=== PATIENT | female | born 1970 | race Caucasian/White ===

== ENCOUNTER 2016-04-30 07:46 | Emergency (ER) | payer OTHER ==
--- NOTE | 2016-04-30 09:00 | DIAGNOSTIC IMAGING REPORT ---
PROCEDURE: XR CHEST 2 VIEW INDICATION: CHEST PAIN, initial encounter TECHNIQUE: PA and lateral view. COMPARISON: None. FINDINGS: Lungs are clear. Cardiovascular structures are normal. Mild degenerative changes of the spine. IMPRESSION: 1. Negative chest.
--- NOTE | 2016-04-30 10:24 | ED CLINICAL REPORT ---
Clinical Report - Physicians/Mid Levels [facility] [address] [place] [address] 04/30/2016 7:47 Patient: JASON GALLEGOS Time Seen: 08:00. Arrived- By private vehicle. Historian- patient. HISTORY OF PRESENT ILLNESS Chief Complaint: CHEST DISCOMFORT. It is described as sharp and "pain" and it is described as located in the central chest area. No radiation. This started several months ago and is still present. It was gradual in onset and has been waxing/waning. Onset during light activity. At its maximum, severity described as moderate. When seen in the E.D., severity described as moderate. Modifying factors- worsened by exertion, movement, cough and deep breaths. Relieved by rest. No nausea, vomiting or diaphoresis. (Patient presents to the ED with symptoms of sharp, chest pain x 4 weeks that has gradually worsened. Patient states that she has experienced a cough x 3 months and has been on several courses of antibiotics prescribed by her primary care physician without relief. Patient states that she is coughing up clear mucus.). She has had a cough (for 3 months). Similar symptoms previously: Recent medical care: The patient was seen recently in a clinic. Seen for similar symptoms. Evaluation/treatment: antibiotic prescribed. REVIEW OF SYSTEMS No fever, pedal edema, calf pain, fainting episodes or headache. No sore throat, abdominal pain, black stools, difficulty with urination or skin rash. No joint pain or bloody stools. The patient has had a moderate cough productive of scant amounts of sputum (for 3 months). No blood tinged sputum or frankly bloody sputum. All systems otherwise negative, except as recorded above. PAST HISTORY See nurses notes. PROBLEMS: Diabetes Mellitus Type 2. Hypercholesterolemia. Hypertension. Anxiety Reaction. Bipolar Disorder. Depression. Palpitations SURGERIES: Cysts removal (lower back). Gastric ByPass. L breast surgery (cyst removal). No history of coronary artery disease, congestive heart failure or pulmonary embolism. SOCIAL HISTORY Never smoker. Occasional alcohol use. No drug use. Is a local resident. ADDITIONAL NOTES The nursing notes have been reviewed. PHYSICAL EXAM Vital Signs: 04/30/2016 07:55 BP: 132/95. HR: 72. RR: 14. O2 saturation: 99%. Temp: 98.5 F. Pain level now: 8/10. Appearance: Alert. Oriented X3. No acute distress. Eyes: Pupils equal, round and reactive to light. Eyes normal inspection. No scleral icterus or pale conjunctivae. ENT: Pharynx normal. No pharyngeal erythema or tonsillar exudate. The mucous membranes are not dry. Neck: Normal inspection. Neck supple. CVS: Normal heart rate and rhythm. Heart sounds normal. Pulses normal. Respiratory: No respiratory distress. Chest pain reproducible with palpation of the anterior chest wall and with movement of the trunk. Breath sounds normal. No decreased air movement, rales, rhonchi or wheezes. Abdomen: Soft and nontender. Back: Normal external inspection. Skin: Skin warm and dry. Normal skin color. No rash. Normal skin turgor. Extremities: Extremities exhibit normal ROM. No calf tenderness. No lower extremity edema. Neuro: Oriented X 3. No motor deficit. LABS, X-RAYS, AND EKG EKG: EKG time: (08:03). Normal sinus rhythm. Rate: 700. Normal P waves. Normal SANDRA. Normal QRS complex. Normal axis. Non-specific ST segment / T wave abnormalities. Non-specific T wave flattening in lead aVF. Non-specific T wave inversion in lead III. The study has been interpreted contemporaneously by me. The EKG appears to be a good tracing. Rhythm Strip #1: Normal sinus rhythm. Regular rhythm. Narrow QRS complexes. No ectopy. Chest X-ray: No acute disease. Normal lung markings present. Normal heart size. Mediastinum normal. Great vessels normal. No infiltrate. No fracture. Views: PA and lateral. Technique: good. The X-rays were interpreted contemporaneously by me. Laboratory Tests: UA-Culture if indicated: (RINA: 04/30/2016 08:04) ( MsgRcvd 04/30/2016 08:35) Final results Test Result Flag Units (Reference) URINE COLOR STRAW URINE APPEARANCE CLEAR URINE GLUCOSE NEGATIVE (NEGATIVE) URINE BILIRUBIN NEGATIVE (NEGATIVE) URINE KETONE NEGATIVE (NEGATIVE) URINE SPECIFIC GRAVITY 1.010 (1.010-1.030) URINE PH 5.5 (5.0-8.0) URINE PROTEIN NEGATIVE (NEGATIVE) URINE UROBILINOGEN 0.2 EU/dL (0.2-1.0) URINE NITRITE NEGATIVE (NEGATIVE) URINE BLOOD 3+ (NEGATIVE) URINE LEUK ESTERASE NEGATIVE (NEGATIVE) URINE RBC 0-1 rbc/hpf (0-1) URINE WBC NONE SEEN wbc/hpf (0-1) URINE EPITHELIAL CELLS 0-1 EPI/hpf (0-5) URINE BACTERIA TRACE (<1+) (NONE SEEN) URINE COMMENT CULT NOT INDICATED URINE CULTURES ARE SET-UP BASED ON THE FOLLOWING CRITERIA:POSITIVE NITRITEPOSITIVE LEUKOCYTE ESTERASEGREATER THAN 10 WHITE BLOOD CELLSMODERATE (2+) OR GREATER BACTERIA CBC w Diff: (RINA: 04/30/2016 08:00) ( MsgRcvd 04/30/2016 08:21) Final results Test Result Flag Units (Reference) WHITE BLOOD COUNT 9.0 K/uL (4.5-11.5) RED BLOOD COUNT 4.02 M/uL (4.00-5.20) HEMOGLOBIN 12.5 gm/dL (12.0-16.0) HEMATOCRIT 38.5 % (36.0-46.0) MEAN CELL VOLUME 96 fL (80-100) MEAN CORPUSCULAR HGB 31 pg (26-34) MEAN CORPUSCULAR HGB CONC 33 g/dL (31-37) RED CELL DISTRIBUTION WIDTH 13.6 % (11.6-14.8) PLATELET COUNT 175 K/uL (150-400) NEUTROPHIL % 64.8 % (50-75) LYMPH % 24.4 L % (25-40) MONO % 8.2 % (3-14) EOSINOPHIL % 2.1 % (0-4) BASOPHIL % 0.5 % (0-2) PT with INR: (RINA: 04/30/2016 08:00) ( MsgRcvd 04/30/2016 08:31) Final results Test Result Flag Units (Reference) INR 1.1 (0.8-1.2) Low Intensity Therapy: INR 1.5-2.0 PT range 18.5-23.1Mod.Intensity Therapy: INR 2.0-3.0 PT range 23.1-31.5High Intensity Therapy: INR 2.5-3.5 PT range 27.4-35.5High Intensity Therapy 2: INR 3.0-4.0 PT range 31.5-39.3 D-DIMER QUANTITATIVE 0.47 ug/mLFEU (0.27-0.52) The primary value of this quantitative assay relates toits negative predictive value (i.e. exclusion) of pulmonaryembolism/deep vein thrombosis/DIC.Elevated levels of d-dimer may also occur with:, age, cancer, inflammation, liver disease,post-op, infection, hematoma, coronary disease, peripheralarteriopathy, bleeding disorders and thrombolytic treatment.Results should be correlated with other clinical andradiological data.Testing Methodology: Latex Immunoassay Secor Level: (RINA: 04/30/2016 08:00) ( MsgRcvd 04/30/2016 09:09) Final results Test Result Flag Units (Reference) LITHIUM <0.2 L mmol/L (0.5-1.5) Urine Drug Screen: (RINA: 04/30/2016 08:04) ( MsgRcvd 04/30/2016 08:45) Final results Test Result Flag Units (Reference) AMPHETAMINE/METHAMPHETAMINE NEGATIVE (NEGATIVE) BARBITURATE NEGATIVE (NEGATIVE) BENZODIAZEPINE NEGATIVE (NEGATIVE) CANNABINOID NEGATIVE (NEGATIVE) COCAINE NEGATIVE (NEGATIVE) ECSTASY NEGATIVE (NEGATIVE) METHADONE NEGATIVE (NEGATIVE) OPIATE POSITIVE H (NEGATIVE) The urine drug screen is a qualitative screening test fordrug overdose and abuse. All screen results should beconsidered as presumptive.Drugs screened for are as follows:BenzodiazepinesCocaineAmphetamines/MetamphetaminesTHC (Tetrahydrocannabinol)OpiatesBarbituratesEcstasyMethadonePositive results are unconfirmed. For confirmation, notifythe lab for the specimen to be sent to the reference lab.All confirmations must be performed by a differentmethodology.The ingestion of natural herbal and plant productscontaining Ephedra/Ephedra metabolites can produce in urineone or more substances capable of cross reacting withamphetamine/methamphetamine immunoassays. These testsprovide a preliminary result only. A more specificalternative chemical method must be used to obtain aconfirmed analytical result. BNP: (RINA: 04/30/2016 08:00) ( MsgRcvd 04/30/2016 08:38) Final results Test Result Flag Units (Reference) B-TYPE NATRIURETIC PEPTIDE 63.3 pg/ml (5-100) CHEM 13 PANEL: (RINA: 04/30/2016 08:00) ( MsgRcvd 04/30/2016 08:39) Final results Test Result Flag Units (Reference) GLUCOSE 226 H mg/dL (70-110) BUN 10 mg/dL (7-18) CREATININE 0.7 mg/dL (0.6-1.3) Estimated GFR >60 mL/min Estimated GFR- >60 mL/min Note: Persistent reduction over 3 months in eGFR<60 mL/min/1.73 m2 defines CKD. Patients with eGFR values>=60 mL/min/1.73 m2 may also have CKD if evidence ofpersistent proteinuria. Additional information may be foundat www.kidney.org. SODIUM 132 L mmol/L (136-145) POTASSIUM 4.5 mmol/L (3.5-5.1) CHLORIDE 100 mmol/L (98-107) CARBON DIOXIDE 24 mmol/L (21-32) CALCIUM 8.4 L mg/dL (8.5-10.1) TOTAL PROTEIN 7.7 g/dL (6.4-8.2) ALBUMIN 3.2 L g/dL (3.3-5.0) BILIRUBIN, TOTAL 0.7 mg/dL (0.0-1.0) ALKALINE PHOSPHATASE 111 U/L (46-116) AST (SGOT) 133 H U/L (15-37) ALT (SGPT) 134 H U/L (12-78) MAGNESIUM 1.3 L mg/dL (1.8-2.4) AMYLASE 46 U/L (25-115) CPK 119 U/L (24-260) TROPONIN I <0.05 L ng/mL (0.00-1.5) TROPONIN REFERENCE RANGE:<0.1 NEGATIVE0.1-1.5 INDETERMINANT>1.5 POSITIVE Rapid Influenza Screen: (RINA: 04/30/2016 09:30) ( MsgRcvd 04/30/2016 09:47) Final results SPECIMEN DESCRIPTION: WAITER/WAITRESS SECOND CLASS SWAB Test Result Flag Units (Reference) RAPID INFLUENZA SCREEN DATE: 04/30/16 INFLUENZA A: NEGATIVE SCREEN FOR INFLUENZA A INFLUENZA B: NEGATIVE SCREEN FOR INFLUENZA B . Pulse Oximetry: 04/30/2016 07:55 O2 saturation: 99%. (FIO2 - room air). Interpretation: normal. Note - Tests: (DATE OF EXAM(S): 09/07/15 REFERRING PHYSICIAN/PROVIDER: Dr. Esteves ATTENDING PHYSICIAN/PROVIDER: Dr. Cueto CONSULTING ACCREDITED FARM MANAGER: Ed Dillon MD PROCEDURE PERFORMED: Pharmacologic stress test with myocardial perfusion imaging and quantitative gated SPECT to evaluate wall motion and left ventricular systolic function. INDICATION: PRECORDIAL PAIN RADIOPHARMACEUTICAL: Stress dose 29 mCi of technetium 99 sestamibi Rest dose 32 mCi of technetium 99 sestamibi PROCEDURAL DETAILS: Following informed consent Lexiscan was infused per protocol. Normal heart rate and blood pressure response. ECG DATA: Resting EKG demonstrated normal sinus rhythm with very short CA interval of 120 millisec. There is subtle ST-segment elevation in lead I and AVL without associated reciprocal change. There are no ST-segment changes or ectopy during Lexiscan infusion. RAW DATA: Normal myocardial tracer uptake. T.i.d. is normal at 0.94. The lung/heart ratio is not explicitly stated but appears grossly normal. QUANTITATIVE GATED SPECT: Stress ejection fraction of 60%. Rest ejection fraction is 50 feet percent. No focal wall motion abnormality seen. MYOCARDIAL PERFUSION STUDY: Small mild reversible katty-lateral perfusion defect. Prone images are not available for review. Suspect breast attenuation artifact, though small area of ischemia cannot be definitively excluded IMPRESSION: 1. Abnormal but low risk pharmacologic stress test with myocardial perfusion imaging. Small mild reversible katty-lateral perfusion defect which could easily be due to shifting breast artifact. Small area of ischemia cannot be definitively excluded. Normal wall motion and left ventricular systolic function. No prior study available for comparison Dictated by: ED DILLON MD). PROGRESS AND PROCEDURES Course of Care: Normal Saline 1 liter IVPB given. Zofran 4 mg IVP given. Mag Sulfate 2 gm IVP given. Dilaudid 1 mg IVP given. Clearly reproducible chest wall pain which has been present for weeks to months - worse over past 2 days. Trop I (despite prolonged pain) and d-dimer are neg. CXR and ECG are unremarkable. Stress test appox 7 months ago was essentially unremarkable. Pt with URI symptoms and likely viral bronchitis. No signs of pneumonia. She has had "several" courses of antibiotics. 10:24 04/30/16. Patient is stable. Physical exam findings are improved. Symptoms much better. Pt can take percocet without problem (but does not respond well to vicodin - nausea. Patient/family counseled. Old ED records reviewed. Disposition: Discharged. Condition: stable and improved. CLINICAL IMPRESSION Chest wall pain .12 lead EKG performed. Acute bronchitis. No viral (influenza) bronchitis. Chronic, moderately well controlled type 2 diabetes with hyperglycemia. No coma. Abnormal liver function test: AST/SGOT and ALT/SGPT. Moderate hypomagnesemia. Mild hyponatremia Bipolar Depression with Subtherapeutic lithium level. INSTRUCTIONS Do not work for three days. Drink plenty of fluids. No alcohol until released. Warnings: Further evaluation is necessary in order to recheck abnormal lab, obtain test results, conduct further tests and assess the possibility of serious illness. It is very important to follow up with a physician. SEDATIVE MEDICATION: You were given sedative medication during your visit. Do not drive or operate dangerous machinery. CONTROLLED SUBSTANCE WARNINGS. GENERAL WARNINGS: Return or contact your physician immediately if your condition worsens or changes unexpectedly, if not improving as expected, or if other problems arise. Your Current Medications: CONTINUE TAKING THE FOLLOWING MEDICATIONS: AmLODIPine Besylate Oral. Atenolol Oral. Glipizide Oral. Secor Oral. Lovastatin Oral. MetFORMIN HCl Oral. Omeprazole Oral. Percocet Oral. Prescription Medications: Percocet 5 mg/325 mg: take 1-2 tablets orally every 8 hours as needed for pain. Dispense ten (10). No refill. Substitution is permissible. Follow-up with: Israel Esteves MD, Internal Medicine, , [facility], [address] [place] [address], [place], [id number] Follow up tomorrow. Reason for referral: AN APPOINTMENT HAS BEEN MADE FOR YOU FOR 8:15 AM TOMORROW - PLEASE ARRIVE 15 MIN EARLY. Summary of care provided to patient and family via paper. (Electronically signed by Pascual Keyes DO 05/01/2016 8:28)
--- NOTE | 2016-04-30 10:24 | ED NURSING NOTES ---
Clinical Report - Nurses [facility] [address] [place] [address] 04/30/2016 7:47 Patient: JASON GALLEGOS TRIAGE Triage time 0755. Chief Complaint: CHEST PAIN. Alert. No acute distress. --08:02 Chuck Gonzalez R.N. 07:55 04/30/16. BP: 132/95. HR: 72. RR: 14. O2 saturation: 99%. Temp: 98.5 F (oral). Pain level now: 11/29. --08:02 Chuck Gonzalez R.N. Weight: 99.7 kg stated. Height/Length: 63 inches Per Patient. BMI: 38.9. --07:59 Chuck Gonzalez R.N. Medications AmLODIPine Besylate Oral. Atenolol Oral. Glipizide Oral. [place] Oral. Lovastatin Oral. MetFORMIN HCl Oral. --08:00 Chuck Gnozalez R.N. Omeprazole Oral. Percocet Oral. --08:00 Chuck Gonzalez R.N. Allergies Hydrocodone. LIsinopril. NSAIDs. --08:00 Chuck Gonzalez R.N. History Arrived by private vehicle. Historian: patient. Accompanied by family. ( Patient presents to the ED with symptoms of sharp, tight chest pain x 2 weeks that has gradually worsened. Patient states that she has experienced a cough x 3 months and has been on several courses of antibiotics prescribed by her primary care physician without relief. Patient states that she is coughing up clear mucus.). She has had a subjective low grade fever. She has had a cough (for 3 months). Treatment INFORMATION SERVICES ASSISTANT: Recently seen in a medical facility; treatment- antibiotic, steroid, breathing treatment and prescription given. PAST MEDICAL HX: Diabetes mellitus. Hypertension. SOCIAL HX: Never smoker. Occasional alcohol use. History of drug use. (no). FALL RISK ASSESSMENT: Fall risk assessment completed. No fall risk identified. NUTRITIONAL RISK ASSESSMENT: The nutritional risk assessment revealed no deficiencies. FUNCTIONAL ASSESSMENT: Functional assessment: no impairments noted. LEARNING NEEDS ASSESSMENT: The learning needs assessment revealed no barriers. SKIN INTEGRITY ASSESSMENT: Skin integrity risk assessment completed. No skin integrity risk identified. --08:02 Chuck Gonzalez R.N. PROBLEMS: Hepatitis. Diabetes Mellitus Type 2. Hypercholesterolemia. Hypertension. Anxiety Reaction. Bipolar Disorder. Depression. --08:00 Chuck Gonzlaez R.N. ADDITIONAL SURGERIES: Cysts removal (lower back). Gastric ByPass. L breast surgery (cyst removal). --08:01 Chuck Gonzalez R.N. PHYSICAL ASSESSMENT Ambulatory to room. GENERAL / NEURO / PSYCH: Alert. Oriented X 4. Appears in no acute distress. HEENT: Mucous membranes are pink. RESPIRATORY: Mild respiratory distress. CVS: Normal sinus rhythm noted. Heart sounds within normal limits. Pulses within normal limits. Capillary refill less than 2 seconds. GI / : Abdomen soft and nontender. EXTREMITIES: No lower extremity edema. SKIN: Skin is warm and dry. Normal skin turgor. Skin is non-tender. --08:03 Chuck Gonzalez R.N. NURSING PROGRESS NOTES The plan of care for this patient includes an assessment with efforts to address impairment of the cardiovascular and respiratory system. Monitoring of patient in place. Patient gowned. Head of bed elevated. Reassurance given. Call light placed in reach. Side rails up x 1. Bed placed in lowest position. Brakes of bed on. --07:55 Chuck Gonzalez R.N. 08:16 04/30/2016 Site #1 started via IV hand with an 20g angiocath; one attempt. Blood drawn: rainbow set. Saline lock flushed with 10 mL saline. --08:16 Chuck Gonzalez R.N. 08:16 04/30/2016 Started IV Fluids IV NS (Saline); bolus of 1000 mL wide open via site #1. Allergies verified and confirmed 5 rights. IV patency established. IV site checked: no pain, redness, or swelling. IV flushed thoroughly pre- and post-medication administration. --08:16 Chuck Gonzalez R.N. 08:40 04/30/2016 Dilaudid (HYDROmorphone HCl PF) IVP 1 mg given over 5 minute(s) via site #1. Sedative warning given to the patient. IV patency established. IV site checked: no pain, redness, or swelling. IV flushed thoroughly pre- and post-medication administration. IVP given by RN. --08:40 Chuck Gonzalez R.N. 08:40 04/30/2016 Zofran (Ondansetron HCl) IVP 4 mg given over 2 minute(s) via site #1. Allergies verified and confirmed 5 rights. IV patency established. IV site checked: no pain, redness, or swelling. IV flushed thoroughly pre- and post-medication administration. IVP given by RN. --08:40 Chuck Gonzalez R.N. 08:43 04/30/16. BP: 127/71. HR: 61. RR: 16. O2 saturation: 93%. --08:43 Chuck Gonzalez R.N. The patient is calm and resting quietly. Overall patient status is improved. --08:43 Chuck Gonzalez R.N. 09:05 04/30/2016 Magnesium Sulfate (Magnesium Sulfate in D5W) IVP 2 gm given over 1 hour(s) via site #1. --09:05 Chary Brand R.N. ( appt. made for pt. tomorrow May.[address] Baltazar.). --09:07 Tesha King ER Tech1 09:37 04/30/16. BP: 109/68. HR: 64. RR: 16. O2 saturation: 98%. Pain level now: 06/01. --09:37 Chuck Gonzalez R.N. The patient is calm and resting quietly. Overall patient status is improved- she states feels better. --09:37 Chuck Gonzalez R.N. 10:42 04/30/2016 IV Fluids IV NS Discontinued: bag #1 completed. Total amount infused: 1400 mL. IV patency established. IV site checked: no pain, redness, or swelling. IV flushed thoroughly. --10:42 Chuck Gonzalez R.N. 10:42 04/30/2016 Magnesium Sulfate IVP Response: pain is improving. Symptoms have improved the patient feels better. --10:42 Chuck Gonzalez R.N. DISPOSITION / DISCHARGE 10:55 04/30/2016 Site #1 removed upon discharge. Catheter intact. Pressure dressing applied. --10:55 Chuck Gonzalez R.N. Condition at departure: improved. The goals identified in the patient's plan of care were met. No learning barriers present. Discharge instructions provided and reviewed with the patient and spouse. Reviewed medication(s) side effects, precautions, dosing and course information. Prescription(s) given to the patient. Reviewed fever care instructions. Patient verbalized understanding. Written instructions provided in Filipino. The patient was discharged home and accompanied by spouse. She left the Emergency Department ambulatory and via private vehicle. Spouse driving. FALL RISK ASSESSMENT: Fall risk assessment completed. No fall risk identified. --10:56 Chuck Gonzalez R.N. 10:55 04/30/16. BP: 147/79. HR: 87. RR: 16. O2 saturation: 100%. Temp: 98.2 F (oral). Pain level now: 0/10. --10:56 Chuck Gonzalez R.N. Departure time: 1056 AM. --10:56 Chuck Gonzalez R.N. Locked/Released at 04/30/2016 10:56 by Chuck Gonzalez R.N.
--- NOTE | 2016-04-30 10:25 | ED ORDER SUMMARY ---
..... Patient: JASON GALLEGOS OrderSheet [facility] VisitID: [id number] [place] [address] 46y, F Registration Date/Time: 04/30/2016 ORDER SHEET Weight: 99.7 kg (stated) Allergies: Hydrocodone, LIsinopril, NSAIDs GENERAL ORDERS: Chest 2V Urgent (08:03 04/30/2016 [facility]) (Ack 8:14 LNations ER Tech1) (8:26 LNations ER Tech1) Store Keeper (Continuous) (08:03 04/30/2016 [facility] DO) (8:11 Jung R.N.) UA-Culture if indicated Urgent (08:04/30/2016 [facility]) (Ack 8:14 LNations ER Tech1) (8:15 HOShaughnessy R.N.) Cardiac Panel Stat (08:04 04/30/2016 [facility]) (Ack 8:14 LNations ER Tech1) (8:15 HOShaughnessy R.N.) BNP Urgent (08:04 04/30/2016 [facility] DO) (Ack 8:14 LNations ER Tech1) (8:15 HOShaughnessy R.N.) D-Dimer Urgent (08:04 04/30/2016 [facility] DO) (Ack 8:14 LNations ER Tech1) (8:15 HOShaughnessy R.N.) Amylase Urgent (08:04 04/30/2016 [facility]) (Ack 8:14 LNations ER Tech1) (8:15 HOShaughnessy R.N.) Urine Drug Screen Urgent (08:04 04/30/2016 [facility] DO) (Ack 8:14 LNations ER Tech1) (8:15 HOShaughnessy R.N.) PT with INR Urgent (08:04 04/30/2016 [facility]) (Ack 8:14 LNations ER Tech1) (8:15 HOShaughnessy R.N.) Oxygen (2 L/min) (NC) (08:04 04/30/2016 [facility]) (Ack 8:13 LNations ER Tech1) (9:36 HOShaughnessy R.N.) Pulse oximeter (08:04 04/30/2016 [facility]) (8:11 Jung R.N.) EKG - ER Stat (08:04 04/30/2016 [facility]) (8:13 LNations ER Tech1) Vitals (08:04 04/30/2016 [facility]) (8:11 Jung R.N.) Rapid Influenza Screen (Nasal Pharyngeal) (RATE ANALYST swab) Urgent (08:16 04/30/2016 [facility]) (Ack 8:25 LNations ER Tech1) (9:25 HOShaughnessy R.N.) [place] Level Urgent (08:54 04/30/2016 [facility]) (Ack 8:57 LNations ER Tech1) (9:25 HOShaughnessy R.N.) MEDICATION ORDERS: IV FLUIDS: IV NS : initial bolus 1000 mL (1000 mL/hr), then 250 mL/hr for X4 (NOW) (08:04 04/30/2016 [facility]) (8:16 HOShaughnessy R.N.) Dilaudid IV 1 mg (NOW) (08:20 04/30/2016 [facility]) (8:40 HOShaughnessy R.N.) Zofran IV 4 mg (NOW) (08:20 04/30/2016 [facility]) (8:40 HOShaughnessy R.N.) Magnesium Sulfate IV 2 gm/50mL (NOW, over 1 hour) (08:54 04/30/2016 [facility]) (9:05 SStone R.N.) ORDER SHEET NOTES: [Electronically signed by Chuck Gonzalez R.N. (10:56 04/30/2016)] [Electronically signed by Pascual Keyes DO (08:28 05/01/2016)] [Electronically locked/signed by Chuck Gonzalez R.N. (10:56 04/30/2016)]
--- NOTE | 2016-04-30 10:25 | ED ORDER SUMMARY ---
..... Patient: JASON GALLEGOS OrderSheet [facility] VisitID: [id number] [place] [address] 46y, F Registration Date/Time: 04/30/2016 ORDER SHEET Weight: 99.7 kg (stated) Allergies: Hydrocodone, LIsinopril, NSAIDs GENERAL ORDERS: Chest 2V Urgent (08:03 04/30/2016 [facility]) (Ack 8:14 LNations ER Tech1) (8:26 LNations ER Tech1) Clinical Program Coordinator (Continuous) (08:03 04/30/2016 [facility] DO) (8:11 Jung R.N.) UA-Culture if indicated Urgent (08:04/30/2016 [facility]) (Ack 8:14 LNations ER Tech1) (8:15 HOShaughnessy R.N.) Cardiac Panel Stat (08:04 04/30/2016 [facility]) (Ack 8:14 LNations ER Tech1) (8:15 HOShaughnessy R.N.) BNP Urgent (08:04 04/30/2016 [facility] DO) (Ack 8:14 LNations ER Tech1) (8:15 HOShaughnessy R.N.) D-Dimer Urgent (08:04 04/30/2016 [facility] DO) (Ack 8:14 LNations ER Tech1) (8:15 HOShaughnessy R.N.) Amylase Urgent (08:04 04/30/2016 [facility]) (Ack 8:14 LNations ER Tech1) (8:15 HOShaughnessy R.N.) Urine Drug Screen Urgent (08:04 04/30/2016 [facility] DO) (Ack 8:14 LNations ER Tech1) (8:15 HOShaughnessy R.N.) PT with INR Urgent (08:04 04/30/2016 [facility]) (Ack 8:14 LNations ER Tech1) (8:15 HOShaughnessy R.N.) Oxygen (2 L/min) (NC) (08:04 04/30/2016 [facility]) (Ack 8:13 LNations ER Tech1) (9:36 HOShaughnessy R.N.) Pulse oximeter (08:04 04/30/2016 [facility]) (8:11 Jung R.N.) EKG - ER Stat (08:04 04/30/2016 [facility]) (8:13 LNations ER Tech1) Vitals (08:04 04/30/2016 [facility]) (8:11 Jung R.N.) Rapid Influenza Screen (Nasal Pharyngeal) (PHOTOGRAPHIC SPECIALIST swab) Urgent (08:16 04/30/2016 [facility]) (Ack 8:25 LNations ER Tech1) (9:25 HOShaughnessy R.N.) K[place] Level Urgent (08:54 04/30/2016 [facility]) (Ack 8:57 LNations ER Tech1) (9:25 HOShaughnessy R.N.) MEDICATION ORDERS: IV FLUIDS: IV NS : initial bolus 1000 mL (1000 mL/hr), then 250 mL/hr for X4 (NOW) (08:04 04/30/2016 [facility]) (8:16 HOShaughnessy R.N.) Dilaudid IV 1 mg (NOW) (08:20 04/30/2016 [facility]) (8:40 HOShaughnessy R.N.) Zofran IV 4 mg (NOW) (08:20 04/30/2016 [facility]) (8:40 HOShaughnessy R.N.) Magnesium Sulfate IV 2 gm/50mL (NOW, over 1 hour) (08:54 04/30/2016 [facility]) (9:05 SStone R.N.) ORDER SHEET NOTES: [Electronically signed by Chuck Gonzalez R.N. (10:56 04/30/2016)] [Electronically signed by Pascual Keyes DO (08:28 05/01/2016)] [Electronically locked/signed by Chuck Gonzalez R.N. (10:56 04/30/2016)]
--- NOTE | 2016-05-01 08:28 | ED MAR SUMMARY ---
..... Medication Administration Record [facility] [address] [place] [address] Patient: JASON GALLEGOS Visit ID: [id number] 46y, F Weight: 99.7 kg Height/Length: 63 in BMI: 38.9 ALLERGIES: Hydrocodone, LIsinopril, NSAIDs Start 08:16 04/30/2016 Chuck Gonzalez R.N., Stop 10:42 04/30/2016 Chuck Gonzalez R.N. Medication Administered: IV NS (SALINE), Dose: IV Fluids, Bolus: 1000 mL wide open, Site: #1 hand. Medication Ordered: IV NS : initial bolus 1000 mL (1000 mL/hr), then 250 mL/hr for X4 (NOW). Given 08:40 04/30/2016 Chuck Gonzalez R.N. Medication Administered: DILAUDID [IVP] (HYDROMORPHONE HCL PF), Dose: 1 mg IVP over 5 minute(s), Site: #1 hand. Medication Ordered: Dilaudid IV 1 mg (NOW). Given 08:40 04/30/2016 Chuck Gonzalez R.N. Medication Administered: ZOFRAN [IVP] (ONDANSETRON HCL), Dose: 4 mg IVP over 2 minute(s), Site: #1 hand. Medication Ordered: Zofran IV 4 mg (NOW). Given 09:05 04/30/2016 Chary Brand R.N. Medication Administered: MAGNESIUM SULFATE [IVP] (MAGNESIUM SULFATE IN D5W), Dose: 2 gm IVP over 1 hour(s), Site: #1 hand. Medication Ordered: Magnesium Sulfate IV 2 gm/50mL (NOW, over 1 hour).
--- NOTE | 2016-05-01 08:28 | ED DISCHARGE INSTRUCTIONS ---
Patient: JASON GALLEGOS General Instructions [facility] VisitID: [id number] [place] [address] 46y, F Registration Date/Time: 04/30/2016 Chest wall pain .12 lead EKG performed. Acute bronchitis. No viral (influenza) bronchitis. Chronic, moderately well controlled type 2 diabetes with hyperglycemia. No coma. Abnormal liver function test: AST/SGOT and ALT/SGPT. Moderate hypomagnesemia. Mild hyponatremia Bipolar Depression with Subtherapeutic lithium level. INSTRUCTIONS Do not work for three days. Drink plenty of fluids. No alcohol until released. Warnings: Further evaluation is necessary in order to recheck abnormal lab, obtain test results, conduct further tests and assess the possibility of serious illness. It is very important to follow up with a physician. SEDATIVE MEDICATION: You were given sedative medication during your visit. Do not drive or operate dangerous machinery. CONTROLLED SUBSTANCE WARNINGS. GENERAL WARNINGS: Return or contact your physician immediately if your condition worsens or changes unexpectedly, if not improving as expected, or if other problems arise. Your Current Medications: CONTINUE TAKING THE FOLLOWING MEDICATIONS: AmLODIPine Besylate Oral. Atenolol Oral. Glipizide Oral. [place] Oral. Lovastatin Oral. MetFORMIN HCl Oral. Omeprazole Oral. Percocet Oral. Prescription Medications: Percocet 5 mg/325 mg: take 1-2 tablets orally every 8 hours as needed for pain. Dispense ten (10). No refill. Substitution is permissible. Follow-up with: Israel Esteves MD, Internal Medicine, , [facility], [address] [place] [address] Follow up tomorrow. Reason for referral: AN APPOINTMENT HAS BEEN MADE FOR YOU FOR 8:15 AM TOMORROW - PLEASE ARRIVE 15 MIN EARLY. Summary of care provided to patient and family via paper. ADDITIONAL INFORMATION Chest Strain A strain of the chest is due to stretching and tearing of the muscle fibers between the ribs. This may occur as a result of severe coughing, strenuous lifting or twisting injuries of the upper back. This usually causes increased pain with movement or deep breathing. This may take a few days to a few weeks to heal. Home Care: Rest. Avoid heavy lifting or strenuous exertion. Avoid any activity that causes pain. If you have a severe cough, use a cough syrup such as Robitussin DM (containing dextromethorphan) unless another cough medicine was prescribed. You may use acetaminophen (Tylenol) or ibuprofen (Motrin, Advil) to control pain, unless another medicine was prescribed. [ NOTE: If you have chronic liver or kidney disease or ever had a stomach ulcer or GI bleeding, talk with your doctor before using these medicines.] Follow Up with your doctor as directed. Get Prompt Medical Attention if any of the following occur: A change in the type of pain: if it feels different, becomes more severe, lasts longer, or begins to spread into your shoulder, arm, neck, jaw or back Shortness of breath or increased pain with breathing Cough with dark colored sputum (phlegm) or blood Weakness, dizziness, or fainting Fever of 100.4F (38C) or higher, or as directed by your healthcare provider Bronchitis, Viral (Adult: No Abx) You have a viral bronchitis. This illness is contagious during the first few days and is spread through the air by coughing and sneezing, or by direct contact (touching the sick person and then touching your own eyes, nose, or mouth). Most viral illnesses resolve within 10-14 days with rest and simple home remedies, although they may sometimes last for several weeks. Antibiotics will not kill a virus and are generally not prescribed for this condition. Home Care: If symptoms are severe, rest at home for the first 2-3 days. When resuming activity, don't let yourself become overly tired. Do not smoke and avoid the smoke of others. You may use acetaminophen (Tylenol) or ibuprofen (Motrin, Advil) to control fever or pain, unless another pain medicine was prescribed. [NOTE: If you have chronic liver or kidney disease or ever had a stomach ulcer or GI bleeding, talk with your doctor before using these medicines.] (Aspirin should never be used in anyone under 18 years of age who is ill with a fever. It may cause severe liver damage.) Your appetite may be poor so a light diet is fine. Avoid dehydration by drinking 6-8 glasses of fluids per day (water, sport drinks such as Gatorade, juices, tea, soup, etc.). Extra fluids will help loosen secretions in the nose and lung. Sngx-afb-cwezgsi cold medicines will not shorten the length of the illness, but may be helpful for cough (Robitussin DM), sore throat (Chloraseptic lozenges or spray), nasal and sinus congestion (Actifed or Sudafed). [NOTE: Do not use decongestants if you have high blood pressure.] Follow Up with your doctor or as directed by our staff if you are not improving over the next week. NOTE: If you are age 65 or older, or if you have chronic asthma or COPD, we recommend a PNEUMOCOCCAL VACCINATION every five years and a yearly INFLUENZAVACCINATION (FLU-SHOT) every . Ask your doctor about this. If you had an X-ray, a radiologist will review it. You will be notified of any new findings that may affect your care.] Get Prompt Medical Attention if any of the following occur: Fever over 100.4F (38.0C) for more than three days Trouble breathing, wheezing or pain with breathing Coughing up blood or increased amounts of colored sputum Weakness, drowsiness, headache, facial pain, ear pain or a stiff neck Hyponatremia Hyponatremia means low sodium levels in the blood. This condition most often occurs after prolonged vomiting or diarrhea. It can also result from the use of diuretics (water pills) or drinking excess amounts of water. Mild hyponatremia causes no symptoms. It is only discovered with a blood test. As sodium levels in the blood decreases, symptoms begin to appear. This includes weakness, confusion, muscle cramping and seizures. Home Care: 1) Reduce your daily water intake until the problem is corrected. 2) If you have been taking diuretics, you may be asked to stop taking them for a short time. 3) If you are having symptoms of weakness or confusion, do not drive or operate dangerous machinery until symptoms resolve. Follow Up with your doctor for a repeat blood test within the next week unless told otherwise. Get Prompt Medical Attention if any of the following occur: -- Increasing weakness -- Dizziness -- Irregular heartbeat, extra beats or very fast heart rate -- Fainting spell Oxycodone Hydrochloride, Acetaminophen Oral tablet What is this medicine? ACETAMINOPHEN; OXYCODONE (a set a GENEVA itz fen; ox i KOE done) is a pain reliever. It is used to treat mild to moderate pain. How should I use this medicine? Take this medicine by mouth with a full glass of water. Follow the directions on the prescription label. Take your medicine at regular intervals. Do not take your medicine more often than directed. Talk to your gate cutter regarding the use of this medicine in children. Special care may be needed. Patients over 65 years old may have a stronger reaction and need a smaller dose. What side effects may I notice from receiving this medicine? Side effects that you should report to your doctor or health physician locums urgent care as soon as possible: allergic reactions like skin rash, itching or hives, swelling of the face, lips, or tongue breathing difficulties, wheezing confusion light headedness or fainting spells severe stomach pain yellowing of the skin or the whites of the eyes Side effects that usually do not require medical attention (report to your doctor or health physician locums urgent care if they continue or are bothersome): dizziness drowsiness nausea vomiting What may interact with this medicine? alcohol antihistamines barbiturates like amobarbital, butalbital, butabarbital, methohexital, pentobarbital, phenobarbital, thiopental, and secobarbital benztropine drugs for bladder problems like solifenacin, trospium, oxybutynin, tolterodine, hyoscyamine, and methscopolamine drugs for breathing problems like ipratropium and tiotropium drugs for certain stomach or intestine problems like propantheline, homatropine methylbromide, glycopyrrolate, atropine, belladonna, and dicyclomine general anesthetics like etomidate, ketamine, nitrous oxide, propofol, desflurane, enflurane, halothane, isoflurane, and sevoflurane medicines for depression, anxiety, or psychotic disturbances medicines for sleep muscle relaxants naltrexone narcotic medicines (opiates) for pain phenothiazines like perphenazine, thioridazine, chlorpromazine, mesoridazine, fluphenazine, prochlorperazine, promazine, and trifluoperazine scopolamine tramadol trihexyphenidyl What if I miss a dose? If you miss a dose, take it as soon as you can. If it is almost time for your next dose, take only that dose. Do not take double or extra doses. Where should I keep my medicine? Keep out of the reach of children. This medicine can be abused. Keep your medicine in a safe place to protect it from theft. Do not share this medicine with anyone. Selling or giving away this medicine is dangerous and against the law. Store at room temperature between 20 and 25 degrees C (68 and 77 degrees F). Keep container tightly closed. Protect from light. This medicine may cause accidental overdose and if it is taken by other adults, children, or pets. Flush any unused medicine down the toilet to reduce the chance of harm. Do not use the medicine after the expiration date. What should I tell my health care provider before I take this medicine? They need to know if you have any of these conditions: brain tumor Crohn's disease, inflammatory bowel disease, or ulcerative colitis drink more than 3 alcohol containing drinks per day drug abuse or addiction head injury heart or circulation problems kidney disease or problems going to the bathroom liver disease lung disease, asthma, or breathing problems an unusual or allergic reaction to acetaminophen, oxycodone, other opioid analgesics, other medicines, foods, dyes, or preservatives or trying to get breast-feeding What should I watch for while using this medicine? Tell your doctor or health physician locums urgent care if your pain does not go away, if it gets worse, or if you have new or a different type of pain. You may develop tolerance to the medicine. Tolerance means that you will need a higher dose of the medication for pain relief. Tolerance is normal and is expected if you take this medicine for a long time. Do not suddenly stop taking your medicine because you may develop a severe reaction. Your body becomes used to the medicine. This does NOT mean you are addicted. Addiction is a behavior related to getting and using a drug for a non-medical reason. If you have pain, you have a medical reason to take pain medicine. Your doctor will tell you how much medicine to take. If your doctor wants you to stop the medicine, the dose will be slowly lowered over time to avoid any side effects. You may get drowsy or dizzy. Do not drive, use machinery, or do anything that needs mental alertness until you know how this medicine affects you. Do not stand or sit up quickly, especially if you are an older patient. This reduces the risk of dizzy or fainting spells. Alcohol may interfere with the effect of this medicine. Avoid alcoholic drinks. There are different types of narcotic medicines (opiates) for pain. If you take more than one type at the same time, you may have more side effects. Give your health care provider a list of all medicines you use. Your doctor will tell you how much medicine to take. Do not take more medicine than directed. Call emergency for help if you have problems breathing. The medicine will cause constipation. Try to have a bowel movement at least every 2 to 3 days. If you do not have a bowel movement for 3 days, call your doctor or health physician locums urgent care. Do not take Tylenol (acetaminophen) or medicines that have acetaminophen with this medicine. Too much acetaminophen can be very dangerous. Many nonprescription medicines contain acetaminophen. Always read the labels carefully to avoid taking more acetaminophen. You have been given the following additional information: Chest Wall Strain Bronchitis, No Antibiotic (Adult) Hyponatremia Oxycodone Hydrochloride, Acetaminophen Oral tablet Do not work for three days. (Electronically signed by Pascual Keyes DO 05/01/2016 8:28)
--- NOTE | 2016-05-01 08:28 | ED MAR SUMMARY ---
..... Medication Administration Record [facility] [address] [place] [address] Patient: JASON GALLEGOS Visit ID: [id number] 46y, F Weight: 99.7 kg Height/Length: 63 in BMI: 38.9 ALLERGIES: Hydrocodone, LIsinopril, NSAIDs Start 08:16 04/30/2016 Chuck Gonzalez R.N., Stop 10:42 04/30/2016 Chuck Gonzalez R.N. Medication Administered: IV NS (SALINE), Dose: IV Fluids, Bolus: 1000 mL wide open, Site: #1 hand. Medication Ordered: IV NS : initial bolus 1000 mL (1000 mL/hr), then 250 mL/hr for X4 (NOW). Given 08:40 04/30/2016 Chuck Gonzalez R.N. Medication Administered: DILAUDID [IVP] (HYDROMORPHONE HCL PF), Dose: 1 mg IVP over 5 minute(s), Site: #1 hand. Medication Ordered: Dilaudid IV 1 mg (NOW). Given 08:40 04/30/2016 Chuck Gonzalez R.N. Medication Administered: ZOFRAN [IVP] (ONDANSETRON HCL), Dose: 4 mg IVP over 2 minute(s), Site: #1 hand. Medication Ordered: Zofran IV 4 mg (NOW). Given 09:05 04/30/2016 Chary Brand R.N. Medication Administered: MAGNESIUM SULFATE [IVP] (MAGNESIUM SULFATE IN D5W), Dose: 2 gm IVP over 1 hour(s), Site: #1 hand. Medication Ordered: Magnesium Sulfate IV 2 gm/50mL (NOW, over 1 hour).
--- NOTE | 2016-05-01 08:29 | ED MED RECONCILIATION SUMMARY ---
Patient: JASON GALLEGOS Medication Reconciliation Report [facility] VisitID: [id number] [address] [place] [address] 46y, F Registration Date/Time: 04/30/2016 Weight: 99.7 kg Height/Length: 63 in. BMI: 38.9 ALLERGIES: Hydrocodone, LIsinopril, NSAIDs The patient's Home Medications are listed below: CONTINUE TAKING THE FOLLOWING MEDICATIONS: AmLODIPine Besylate Oral Atenolol Oral Glipizide Oral [place] Oral Lovastatin Oral MetFORMIN HCl Oral Omeprazole Oral Percocet Oral The source(s) of the original Home Medication information: Not obtained. The following Medications were given to the patient in the Emergency Department: IV NS IV Fluids bolus 1000 mL wide open, administered: 04/30/2016 8:16:00 AM Dilaudid [IVP] IVP 1 mg, administered: 04/30/2016 8:40:00 AM Zofran [IVP] IVP 4 mg, administered: 04/30/2016 8:40:00 AM Magnesium Sulfate [IVP] IVP 2 gm, administered: 04/30/2016 9:05:00 AM The following Medications were prescribed to the patient: Percocet 5 mg/325 mg: take 1-2 tablets orally every 8 hours as needed for pain. Dispense ten (10). No refill. Substitution is permissible. -- Pascual Keyes DO
--- NOTE | 2016-05-01 08:29 | ED MED RECONCILIATION SUMMARY ---
Patient: JASON GALLEGOS Medication Reconciliation Report [facility] VisitID: [id number] [place] [address] 46y, F Registration Date/Time: 04/30/2016 Weight: 99.7 kg Height/Length: 63 in. BMI: 38.9 ALLERGIES: Hydrocodone, LIsinopril, NSAIDs The patient's Home Medications are listed below: CONTINUE TAKING THE FOLLOWING MEDICATIONS: AmLODIPine Besylate Oral Atenolol Oral Glipizide Oral [place] Oral Lovastatin Oral MetFORMIN HCl Oral Omeprazole Oral Percocet Oral The source(s) of the original Home Medication information: Not obtained. The following Medications were given to the patient in the Emergency Department: IV NS IV Fluids bolus 1000 mL wide open, administered: 04/30/2016 8:16:00 AM Dilaudid [IVP] IVP 1 mg, administered: 04/30/2016 8:40:00 AM Zofran [IVP] IVP 4 mg, administered: 04/30/2016 8:40:00 AM Magnesium Sulfate [IVP] IVP 2 gm, administered: 04/30/2016 9:05:00 AM The following Medications were prescribed to the patient: Percocet 5 mg/325 mg: take 1-2 tablets orally every 8 hours as needed for pain. Dispense ten (10). No refill. Substitution is permissible. -- Pascual eKyes DO
== END 2016-04-30 10:57 | disposition home or self-care (01) ==
LOC: ED SRH 07:46
DX: J20.9 Acute bronchitis, unspecified (principal); I10 Essential (primary) hypertension; E11.65 Type 2 diabetes mellitus with hyperglycemia; E83.42 Hypomagnesemia; E87.1 Hypo-osmolality and hyponatremia; R07.89 Other chest pain; R94.5 Abnormal results of liver function studies; F31.9 Bipolar disorder, unspecified; F32.9 Major depressive disorder, single episode, unspecified; Z51.81 Encounter for therapeutic drug level monitoring
CPT/HCPCS: 90004; 90100; 90616; 91320; 91400; 91556; 91589; 92530; 92610; 92720; 92760; 92761; 92762; 92763; 92764; 92765; 92766; 92767; 94060; 95059

== ENCOUNTER 2016-10-08 14:06 | Emergency (ER) | payer OTHER ==
--- NOTE | 2016-10-08 15:19 | DIAGNOSTIC IMAGING REPORT ---
PROCEDURE: XR CHEST 1 VIEW INDICATION: SOB TECHNIQUE: Portable AP view 03:00 p.m. COMPARISON: Chest 04/30/2016 FINDINGS: Lungs are clear. Heart and mediastinum are normal. Thorax is normal. IMPRESSION: 1. Negative chest.
--- NOTE | 2016-10-08 17:32 | ED NURSING NOTES ---
Clinical Report - Nurses [facility] [address] [place] [address] 10/08/2016 14:06 Patient: JASON GALLEGOS TRIAGE Triage time 14:12. Acuity: LEVEL 4. Chief Complaint: (COUGHING). 14:13 10/08/16. 14:13 10/08/16. Alert. SEPSIS SCREEN: Sepsis Screen. Negative (no infection suspected/documented). EPHRAIM COMA SCORE: Ephraim Coma Scale: 15- eyes open spontaneously (4); best verbal response- oriented x 4 (5); best motor response- obeys commands (6). --14:19 Cheko Ingram R.N. 14:12 10/08/16. BP: 141/80. HR: 78. RR: 18. O2 saturation: 100% on room air. Temp: 98.2 F (oral). Pain level now: 5/10. --14:19 Cheko Ingram R.N. Weight: 104.3 kg stated. Height/Length: 63 inches Per Patient. BMI: 40.7. --14:17 Cheko Ingram R.N. Medications AmLODIPine Besylate Oral. Atenolol Oral. Glipizide Oral. [place] Oral. Lovastatin Oral. MetFORMIN HCl Oral. Omeprazole Oral. Percocet Oral. --14:18 Cheko Ingram R.N. Allergies Hydrocodone. LIsinopril. NSAIDs. --14:18 Cheko Ingram R.N. History Arrived by private vehicle. Historian: patient. Accompanied by family. Primary physician (MARICHUY). 14:13 10/08/16. ( 6 months ago). She has had a cough. 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 PAST MEDICAL HX: Immunizations: up-to-date. SOCIAL HX: Never smoker. Occasional alcohol use. No drug use. FALL RISK ASSESSMENT: Fall risk assessment completed. No fall risk identified. NUTRITIONAL RISK ASSESSMENT: The nutritional risk assessment revealed no deficiencies. FUNCTIONAL ASSESSMENT: Functional assessment: no impairments noted. LEARNING NEEDS ASSESSMENT: The learning needs assessment revealed no barriers. SKIN INTEGRITY ASSESSMENT: Skin integrity risk assessment completed. No skin integrity risk identified. --14:19 Cheko Ingram R.N. PROBLEMS: Bronchitis. Hypomagnesemia. Hyponatremia. Chest Wall Pain. Abnormal Liver Function Test. Diabetes Mellitus. Hepatitis. Diabetes Mellitus Type 2. Hypercholesterolemia. Hypertension. Anxiety Reaction. Bipolar Disorder. Depression. --14:19 Cheko Ingram R.N. ADDITIONAL SURGERIES: Cysts removal (lower back). Gastric ByPass. L breast surgery (cyst removal). --14:19 Cheko Ingram R.N. Assessment 14:10/08/16. --14:19 Cheko Ingram R.N. Interventions 14:10/08/16. 14:10/08/16. ID and allergy band on patient. To treatment room. --14:19 Cheko Ingram R.N. PHYSICAL ASSESSMENT 14:10/08/16. Ambulatory to room. GENERAL / NEURO / PSYCH: Alert. Oriented X 4. RESPIRATORY: Respirations not labored. Cough. CVS: Normal sinus rhythm noted. Capillary refill less than 2 seconds. SKIN: Skin is warm and dry. --14:20 Cheko Ingram R.N. NURSING PROGRESS NOTES 14:10/08/16. The plan of care for this patient has been created. electronic device monitor, pulse oximeter and NIBP monitor placed on patient; monitor alarms on. Patient gowned. Head of bed elevated. Two patient identifiers checked. Call light placed in reach. Side rails up x 2. Bed placed in lowest position. Brakes of bed on. --14:20 Cheko Ingram R.N. 14:20 10/08/16. Cardiac rhythm: normal sinus rhythm. --14:20 Cheko Ingram R.N. 14:53 10/08/2016 Site #1 started via IV in the right upper arm with an 20g angiocath, with aseptic technique and good blood return; one attempt. Blood drawn: rainbow set. Labeled in the presence of the patient and sent to the lab. Saline lock flushed with 10 mL saline. --14:53 Piper Hammond R.N. EKG time: (1697). EKG was ordered, performed by a tech and shown to the ED physician. --14:57 Tesha King, ER Tech1 15:33 10/08/16. BP: 144/78. HR: 71. RR: 18. O2 saturation: 100% on room air. --15:33 Cheko Ingram R.N. 15:33 10/08/16. Cardiac rhythm: normal sinus rhythm. --15:33 Cheko Ingram R.N. 16:42 10/08/16. BP: 147/76. HR: 64. RR: 14. O2 saturation: 99% on room air. --16:43 Cheko Ingram R.N. 16:43 10/08/16. Cardiac rhythm: normal sinus rhythm. --16:43 Cheko Ingram R.N. 17:28 10/08/2016 Magnesium Hydroxide PO. Allergies verified and confirmed 5 rights. (Mag Oxide 400mg PO one time). --17:28 Cheko Ingram R.N. DISPOSITION / DISCHARGE 17:32 10/08/2016 Site #1 removed upon discharge. Catheter intact. --17:32 Cheko Ingram R.N. 17:32 10/08/16. Cardiac rhythm: normal sinus rhythm. Condition at departure: improved. No learning barriers present. Discharge instructions provided and reviewed with the patient. Reviewed warnings. Reviewed medication(s). Treatments reviewed. Patient verbalized understanding. Written instructions provided in Tunisian. The patient was discharged by the physician. She was discharged home and accompanied by family. She left the Emergency Department ambulatory and via private vehicle. Family member driving. --17:32 Cheko Ingram R.N. 17:31 10/08/16. BP: 120/78. HR: 72. RR: 14. O2 saturation: 99% on room air. Temp: 98.2 F (oral). --17:32 Cheko Ingram R.N. 17:39 10/08/16. Departure time: 17:39 Oct 08 2016. --17:39 Cheko Ingram R.N. Locked/Released at 10/08/2016 18:03 by Cheko Ingram R.N.
--- NOTE | 2016-10-08 17:32 | ED ORDER SUMMARY ---
..... Patient: JASON GALLEGOS OrderSheet [facility] VisitID: [id number] [address] [place] [address] 46y, F Registration Date/Time: 10/08/2016 ORDER SHEET Weight: 104.3 kg (stated) Allergies: Hydrocodone, LIsinopril, NSAIDs GENERAL ORDERS: Data Conversion Developer (Continuous) (14:20 10/08/2016 JBoardley R.N. per protocol) (14:20 JBoardley R.N.) Pulse oximeter (14:20 10/08/2016 JBoardley R.N. per protocol) (14:20 JBoardley R.N.) Chest 1V Urgent (14:41 10/08/2016 Asiya Gutierrez) (Ack 14:55 LNations ER Tech1) (15:04 LNations ER Tech1) Cardiac Panel Stat (14:41 10/08/2016 Asiya Gutierrez) (14:53 MWinterer R.N.) EKG - ER Stat (14:41 10/08/2016 Asiya Gutierrez) (14:48 LNations ER Tech1) MEDICATION ORDERS: - (Magnesium Oxide 400 mg PO x 1 now) (17:15 10/08/2016 Asiya Gutierrez) (Ack 17:22 JBoardley R.N.) (17:28 JBoardley R.N.) IV FLUIDS: IV Saline Lock (14:41 10/08/2016 Asiya Gutierrez) (Ack 14:44 MWinterer R.N.) (14:53 MWinterer R.N.) ORDER SHEET NOTES: [Electronically signed by Cheko Ingram R.N. (18:03 10/08/2016)] [Electronically signed by Tobin Potts Dr. (22:20 10/08/2016)] [Electronically locked/signed by Cheko Ingram R.N. (18:03 10/08/2016)]
--- NOTE | 2016-10-08 17:32 | ED NURSING NOTES ---
Clinical Report - Nurses [facility] [address] [place] [address] 10/08/2016 14:06 Patient: JASON GALLEGOS TRIAGE Triage time 14:12. Acuity: LEVEL 4. Chief Complaint: (COUGHING). 14:13 10/08/16. 14:13 10/08/16. Alert. SEPSIS SCREEN: Sepsis Screen. Negative (no infection suspected/documented). EPHRAIM COMA SCORE: Ephraim Coma Scale: 15- eyes open spontaneously (4); best verbal response- oriented x 4 (5); best motor response- obeys commands (6). --14:19 Cheko Ingram R.N. 14:12 10/08/16. BP: 141/80. HR: 78. RR: 18. O2 saturation: 100% on room air. Temp: 98.2 F (oral). Pain level now: 5/10. --14:19 Cheko Ingram R.N. Weight: 104.3 kg stated. Height/Length: 63 inches Per Patient. BMI: 40.7. --14:17 Cheko Ingram R.N. Medications AmLODIPine Besylate Oral. Atenolol Oral. Glipizide Oral. [place] Oral. Lovastatin Oral. MetFORMIN HCl Oral. Omeprazole Oral. Percocet Oral. --14:18 Cheko Ingram R.N. Allergies Hydrocodone. LIsinopril. NSAIDs. --14:18 Cheko Ingram R.N. History Arrived by private vehicle. Historian: patient. Accompanied by family. Primary physician (MARICHUY). 14:13 10/08/16. ( 6 months ago). She has had a cough. 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 PAST MEDICAL HX: Immunizations: up-to-date. SOCIAL HX: Never smoker. Occasional alcohol use. No drug use. FALL RISK ASSESSMENT: Fall risk assessment completed. No fall risk identified. NUTRITIONAL RISK ASSESSMENT: The nutritional risk assessment revealed no deficiencies. FUNCTIONAL ASSESSMENT: Functional assessment: no impairments noted. LEARNING NEEDS ASSESSMENT: The learning needs assessment revealed no barriers. SKIN INTEGRITY ASSESSMENT: Skin integrity risk assessment completed. No skin integrity risk identified. --14:19 Cheko Ingram R.N. PROBLEMS: Bronchitis. Hypomagnesemia. Hyponatremia. Chest Wall Pain. Abnormal Liver Function Test. Diabetes Mellitus. Hepatitis. Diabetes Mellitus Type 2. Hypercholesterolemia. Hypertension. Anxiety Reaction. Bipolar Disorder. Depression. --14:19 Cheko Ingram R.N. ADDITIONAL SURGERIES: Cysts removal (lower back). Gastric ByPass. L breast surgery (cyst removal). --14:19 Cheko Ingram R.N. Assessment 14:10/08/16. --14:19 Cheko Ingram R.N. Interventions 14:10/08/16. 14:10/08/16. ID and allergy band on patient. To treatment room. --14:19 Cheko Ingram R.N. PHYSICAL ASSESSMENT 14:10/08/16. Ambulatory to room. GENERAL / NEURO / PSYCH: Alert. Oriented X 4. RESPIRATORY: Respirations not labored. Cough. CVS: Normal sinus rhythm noted. Capillary refill less than 2 seconds. SKIN: Skin is warm and dry. --14:20 Cheko Ingram R.N. NURSING PROGRESS NOTES 14:10/08/16. The plan of care for this patient has been created. front desk monitor, pulse oximeter and NIBP monitor placed on patient; monitor alarms on. Patient gowned. Head of bed elevated. Two patient identifiers checked. Call light placed in reach. Side rails up x 2. Bed placed in lowest position. Brakes of bed on. --14:20 Cheko Ingram R.N. 14:20 10/08/16. Cardiac rhythm: normal sinus rhythm. --14:20 Cheko Ingram R.N. 14:53 10/08/2016 Site #1 started via IV in the right upper arm with an 20g angiocath, with aseptic technique and good blood return; one attempt. Blood drawn: rainbow set. Labeled in the presence of the patient and sent to the lab. Saline lock flushed with 10 mL saline. --14:53 Piper Hammond R.N. EKG time: (5211). EKG was ordered, performed by a tech and shown to the ED physician. --14:57 Tesha King, ER Tech1 15:33 10/08/16. BP: 144/78. HR: 71. RR: 18. O2 saturation: 100% on room air. --15:33 Cheko Ingram R.N. 15:33 10/08/16. Cardiac rhythm: normal sinus rhythm. --15:33 Cheko Ingram R.N. 16:42 10/08/16. BP: 147/76. HR: 64. RR: 14. O2 saturation: 99% on room air. --16:43 Cheko Ingram R.N. 16:43 10/08/16. Cardiac rhythm: normal sinus rhythm. --16:43 Cheko Ingram R.N. 17:28 10/08/2016 Magnesium Hydroxide PO. Allergies verified and confirmed 5 rights. (Mag Oxide 400mg PO one time). --17:28 Cheko Ingram R.N. DISPOSITION / DISCHARGE 17:32 10/08/2016 Site #1 removed upon discharge. Catheter intact. --17:32 Cheko Ingram R.N. 17:32 10/08/16. Cardiac rhythm: normal sinus rhythm. Condition at departure: improved. No learning barriers present. Discharge instructions provided and reviewed with the patient. Reviewed warnings. Reviewed medication(s). Treatments reviewed. Patient verbalized understanding. Written instructions provided in Lao. The patient was discharged by the physician. She was discharged home and accompanied by family. She left the Emergency Department ambulatory and via private vehicle. Family member driving. --17:32 Cheko Ingram R.N. 17:31 10/08/16. BP: 120/78. HR: 72. RR: 14. O2 saturation: 99% on room air. Temp: 98.2 F (oral). --17:32 Cheko Ingram R.N. 17:39 10/08/16. Departure time: 17:39 Oct 08 2016. --17:39 Cheko Ingram R.N. Locked/Released at 10/08/2016 18:03 by Cheko Ingram R.N.
--- NOTE | 2016-10-08 17:32 | ED CLINICAL REPORT ---
Clinical Report - Physicians/Mid Levels [facility] [address] [place] [address] 10/08/2016 14:06 Patient: JASON GALLEGOS Time Seen: 14:12; initial patient contact. Arrived- By private vehicle. Historian- patient. HISTORY OF PRESENT ILLNESS Chief Complaint: COUGH. This started about 6 months ago and is still present. It was gradual in onset. The illness is described as moderate. The patient has had sputum production, a cough, chest discomfort, a sore throat and nasal congestion. She has had sinus pressure, sinus drainage and a nasal discharge. No difficulty breathing, chest pain, fever, muscle aches or chills. No ear pain. Additional history - No known contact with a sick individual. Similar symptoms previously: Many times. Recent medical care: Not recently seen/assessed. REVIEW OF SYSTEMS No nausea, diarrhea, pedal edema or calf pain. She has had mild vomiting. The vomiting was post-tussive. All systems otherwise negative, except as recorded above. PAST HISTORY Bronchitis. Hypomagnesemia. Hyponatremia. Chest Wall Pain. Abnormal Liver Function Test. Diabetes Mellitus. Hepatitis. Diabetes Mellitus Type 2. Hypercholesterolemia. Hypertension. Anxiety Reaction. Bipolar Disorder. Depression. ADDITIONAL SURGERIES: Cysts removal (lower back). Gastric ByPass. L breast surgery (cyst removal). -. SOCIAL HISTORY Never smoker. Occasional alcohol use. No drug use. ADDITIONAL NOTES The nursing notes have been reviewed. PHYSICAL EXAM Vital Signs: 10/08/2016 14:12 BP: 141/80. HR: 78. RR: 18. O2 saturation: 100%. Temp: 98.2 F. Pain level now: 5/10. Have been reviewed. Hypertensive. Heart rate normal. Respiratory rate normal. Temperature normal. Oxygen saturation normal. Appearance: Alert. No acute distress. Head: Tenderness present to percussion/palpation of the sinuses: moderate right and left frontal tenderness. Eyes: Eyes normal inspection. ENT: Mild pharyngeal erythema. Neck: Normal inspection. Neck supple. No JVD or lymphadenopathy. CVS: Normal heart rate and rhythm. Heart sounds normal. Respiratory: No respiratory distress. Breath sounds normal. Skin: Skin warm and dry. Normal skin color. Extremities: No calf tenderness. No lower extremity edema. Neuro: Oriented X 3. LABS, X-RAYS, AND EKG EKG: EKG time: (1447). No acute process. No acute ischemia. Normal EKG. Normal sinus rhythm. Rate: 64. Normal P waves. Normal SANDRA. Normal QRS complex. Normal axis. Normal ST and T waves, QT and QTc. EKG unchanged when compared with prior EKG. (04/30/16). The study has been interpreted contemporaneously by me. The study has been independently viewed by me. The EKG appears to be a good tracing. Interpretation time: 1447. Chest X-ray: No acute disease. Normal lung markings present. Normal heart size. Mediastinum normal. Great vessels normal. No infiltrate. Views: AP. Technique: good. The X-rays were independently viewed by me and interpreted contemporaneously by me. A comparison with prior films reveals that the findings are unchanged. Laboratory Tests: CBC w Diff: (RINA: 10/08/2016 15:30) ( [facility] 10/08/2016 16:33) Final results Test Result Flag Units (Reference) WHITE BLOOD COUNT 10.2 K/uL (4.5-11.5) RED BLOOD COUNT 4.69 M/uL (4.00-5.20) HEMOGLOBIN 14.5 gm/dL (12.0-16.0) HEMATOCRIT 43.8 % (36.0-46.0) MEAN CELL VOLUME 93 fL (80-100) MEAN CORPUSCULAR HGB 31 pg (26-34) MEAN CORPUSCULAR HGB CONC 33 g/dL (31-37) RED CELL DISTRIBUTION WIDTH 12.9 % (11.6-14.8) PLATELET COUNT 192 K/uL (150-400) LYMPH % 22.4 L % (25-40) MONO % 1.9 L % (3-14) GRANULOCYTE % 75.7 (53-90) CHEM 13 PANEL: (RINA: 10/08/2016 15:30) ( [facility] 10/08/2016 16:44) Final results Test Result Flag Units (Reference) GLUCOSE 275 H mg/dL (70-110) BUN 8 mg/dL (7-18) CREATININE 0.7 mg/dL (0.6-1.3) Estimated GFR >60 mL/min Estimated GFR- >60 mL/min Note: Persistent reduction over 3 months in eGFR<60 mL/min/1.73 m2 defines CKD. Patients with eGFR values>=60 mL/min/1.73 m2 may also have CKD if evidence ofpersistent proteinuria. Additional information may be foundat www.kidney.org. SODIUM 136 mmol/L (136-145) POTASSIUM 4.3 mmol/L (3.5-5.1) CHLORIDE 101 mmol/L (98-107) CARBON DIOXIDE 23 mmol/L (21-32) CALCIUM 9.2 mg/dL (8.5-10.1) TOTAL PROTEIN 9.0 H g/dL (6.4-8.2) ALBUMIN 3.3 g/dL (3.3-5.0) BILIRUBIN, TOTAL 0.6 mg/dL (0.0-1.0) ALKALINE PHOSPHATASE 127 H U/L (46-116) AST (SGOT) 128 H U/L (15-37) ALT (SGPT) 128 H U/L (12-78) MAGNESIUM 1.7 L mg/dL (1.8-2.4) CPK 104 U/L (24-260) TROPONIN I <0.05 L ng/mL (0.00-1.5) TROPONIN REFERENCE RANGE:<0.1 NEGATIVE0.1-1.5 INDETERMINANT>1.5 POSITIVE . PROGRESS AND PROCEDURES Disposition: Discharged home in good and improved condition. Condition: good. CLINICAL IMPRESSION Acute frontal sinusitis Abnormal liver function test: AST/SGOT, ALT/SGPT and alkaline phosphatase (Chronic). Mild hypomagnesemia. INSTRUCTIONS Your Current Medications: CONTINUE TAKING THE FOLLOWING MEDICATIONS: AmLODIPine Besylate Oral. Atenolol Oral. Glipizide Oral. [place] Oral. Lovastatin Oral. MetFORMIN HCl Oral. Omeprazole Oral. Percocet Oral. Prescription Medications: Azithromycin 500 mg tablets: take 1 orally every day for 3 days. Total course 3 days. No refills. Flonase nasal spray: 2 sprays to each nostril daily. Dispense one (1) unit. No refills. Substitution is permissible Follow-up: Follow up with your doctor in about two days. Call for an appointment. Blood pressure screening was not performed during this visit because the patient has an active diagnosis of hypertension. (Electronically signed by Tobni Potts Dr. 10/08/2016 22:20)
--- NOTE | 2016-10-08 17:32 | ED ORDER SUMMARY ---
..... Patient: JASON GALLEGOS OrderSheet [facility] VisitID: [id number] [place] [address] 46y, F Registration Date/Time: 10/08/2016 ORDER SHEET Weight: 104.3 kg (stated) Allergies: Hydrocodone, LIsinopril, NSAIDs GENERAL ORDERS: Breaker Unit Assembler (Continuous) (14:20 10/08/2016 JBoardley R.N. per protocol) (14:20 JBoardley R.N.) Pulse oximeter (14:20 10/08/2016 JBoardley R.N. per protocol) (14:20 JBoardley R.N.) Chest 1V Urgent (14:41 10/08/2016 Asiya Gutierrez) (Ack 14:55 LNations ER Tech1) (15:04 LNations ER Tech1) Cardiac Panel Stat (14:41 10/08/2016 Asiya Gutierrez) (14:53 MWinterer R.N.) EKG - ER Stat (14:41 10/08/2016 Asiya Gutierrez) (14:48 LNations ER Tech1) MEDICATION ORDERS: - (Magnesium Oxide 400 mg PO x 1 now) (17:15 10/08/2016 Aisya Gutierrez) (Ack 17:22 JBoardley R.N.) (17:28 JBoardley R.N.) IV FLUIDS: IV Saline Lock (14:41 10/08/2016 Asiya Gutierrez) (Ack 14:44 MWinterer R.N.) (14:53 MWinterer R.N.) ORDER SHEET NOTES: [Electronically signed by Cheko Ingram R.N. (18:03 10/08/2016)] [Electronically signed by Tobin Potts Dr. (22:20 10/08/2016)] [Electronically locked/signed by Cheko Ingram R.N. (18:03 10/08/2016)]
--- NOTE | 2016-10-08 22:20 | ED MED RECONCILIATION SUMMARY ---
Patient: JASON GALLEGOS Medication Reconciliation Report [facility] VisitID: [id number] [place] [address] 46y, F Registration Date/Time: 10/08/2016 Weight: 104.3 kg Height/Length: 63 in. BMI: 40.7 ALLERGIES: Hydrocodone, LIsinopril, NSAIDs The patient's Home Medications are listed below: CONTINUE TAKING THE FOLLOWING MEDICATIONS: AmLODIPine Besylate Oral Atenolol Oral Glipizide Oral [place] Oral Lovastatin Oral MetFORMIN HCl Oral Omeprazole Oral Percocet Oral The source(s) of the original Home Medication information: Not obtained. The following Medications were given to the patient in the Emergency Department: Magnesium Hydroxide [PO] PO, administered: 10/08/2016 5:28:00 PM The following Medications were prescribed to the patient: Azithromycin 500 mg tablets: take 1 orally every day for 3 days. Total course 3 days. No refills. -- Tobin Potts Dr. Fl[place]evenson nasal spray: 2 sprays to each nostril daily. Dispense one (1) unit. No refills. Substitution is permissible -- Tobin Potts Dr.
--- NOTE | 2016-10-08 22:20 | ED DISCHARGE INSTRUCTIONS ---
Patient: JASON GALLEGOS General Instructions [facility] VisitID: [id number] [place] [address] 46y, F Registration Date/Time: 10/08/2016 Acute frontal sinusitis Abnormal liver function test: AST/SGOT, ALT/SGPT and alkaline phosphatase (Chronic). Mild hypomagnesemia. INSTRUCTIONS Your Current Medications: CONTINUE TAKING THE FOLLOWING MEDICATIONS: AmLODIPine Besylate Oral. Atenolol Oral. Glipizide Oral. [place] Oral. Lovastatin Oral. MetFORMIN HCl Oral. Omeprazole Oral. Percocet Oral. Prescription Medications: Azithromycin 500 mg tablets: take 1 orally every day for 3 days. Total course 3 days. No refills. Flonase nasal spray: 2 sprays to each nostril daily. Dispense one (1) unit. No refills. Substitution is permissible Follow-up: Follow up with your doctor in about two days. Call for an appointment. Blood pressure screening was not performed during this visit because the patient has an active diagnosis of hypertension. ADDITIONAL INFORMATION Sinusitis [Abx Tx] The sinuses are air-filled spaces within the bones of the face. They connect to the inside of the nose. Sinusitis is an inflammation of the tissue lining the sinus cavity. Sinus inflammation can occur during a cold or hay-fever (allergies to pollens and other particles in the air) and cause symptoms of sinus congestion and fullness. A sinus infection causes fever, headache and facial pain. There is usually green or yellow drainage from the nose or into the back of the throat (post-nasal drip). Antibiotics are prescribed to treat this condition. Home Care: Drink plenty of water, hot tea, and other liquids to stay well hydrated. This thins the mucus and promotes sinus drainage. Apply heat to the painful areas of the face. Use a towel soaked in hot water. Or, setter juice packaging machines the shower and direct the hot spray onto your face. This is a good way to inhale warm water vapor and get heat on your face at the same time. (Cover your mouth and nose with your hands so you can still breathe as you do this.) Use a vaporizer with products such as Popdustub (contains menthol) at night. Suck on peppermint, menthol or eucalyptus hard candies during the day. An expectorant containing guaifenesin (such as Robitussin), helps to thin the mucus and promote drainage from the sinuses. Spcm-kyp-lltodpy decongestants may be used unless a similar medicine was prescribed. Nasal sprays work the fastest. Use one that contains phenylephrine (Obie-synephrine, Sinex and others) or oxymetazoline (Afrin). First blow the nose gently to remove mucus, then apply the drops. Do not use these medicines more often than directed on the label or for more than three days or symptoms may worsen. You may also use tablets containing pseudoephedrine (Sudafed). Many sinus remedies combine ingredients, which may increase side effects. Read the labels or ask the pharmacist for help. NOTE: Persons with high blood pressure should not use decongestants. They can raise blood pressure. Antihistamines are useful if allergies are a cause of your sinusitis. The mildest one is chlorpheniramine (available without a prescription). The dose for adults is 8-12mg three times a day. [NOTE: Do not use chlorpheniramine if you have glaucoma or if you are a man with trouble urinating due to an enlarged prostate.] Claritin (loratidine) is an antihistamine that causes less drowsiness and is a good alternative for daytime use. Do not use nasal rinses or irrigation during an acute sinus infection, unless advised by your doctor. Rinsing may spread the infection to other sinuses. You may use acetaminophen (Tylenol) or ibuprofen (Motrin, Advil) to control pain, unless another pain medicine was prescribed. [ NOTE: If you have chronic liver or kidney disease or ever had a stomach ulcer, talk with your doctor before using these medicines.] (Aspirin should never be used in anyone under 18 years of age who is ill with a fever. It may cause severe liver damage.) Finish the full course, even if you are feeling better after a few days. Follow Up with your doctor or this facility in one week or as instructed by our staff if not improving. Get Prompt Medical Attention if any of the following occur: Facial pain or headache becomes more severe Stiff neck Unusual drowsiness or confusion, or not acting like your normal self Swelling of the forehead or eyelids Vision problems including blurred or double vision Fever of 100.4F (38C) or higher, or as directed by your healthcare provider Seizure Azithromycin Oral tablet What is this medicine? AZITHROMYCIN (az cary tamez) is a macrolide antibiotic. It is used to treat or prevent certain kinds of bacterial infections. It will not work for colds, flu, or other viral infections. How should I use this medicine? Take this medicine by mouth with a full glass of water. Follow the directions on the prescription label. The tablets can be taken with food or on an empty stomach. If the medicine upsets your stomach, take it with food. Take your medicine at regular intervals. Do not take your medicine more often than directed. Take all of your medicine as directed even if you think your are better. Do not skip doses or stop your medicine early. Talk to your trim machine adjuster regarding the use of this medicine in children. Special care may be needed. What side effects may I notice from receiving this medicine? Side effects that you should report to your doctor or health childcare aide as soon as possible: allergic reactions like skin rash, itching or hives, swelling of the face, lips, or tongue confusion, nightmares or hallucinations dark urine difficulty breathing hearing loss irregular heartbeat or chest pain pain or difficulty passing urine redness, blistering, peeling or loosening of the skin, including inside the mouth white patches or sores in the mouth yellowing of the eyes or skin Side effects that usually do not require medical attention (report to your doctor or health childcare aide if they continue or are bothersome): diarrhea dizziness, drowsiness headache stomach upset or vomiting tooth discoloration vaginal irritation What may interact with this medicine? Do not take this medicine with any of the following medications: lincomycin This medicine may also interact with the following medications: amiodarone antacids cyclosporine digoxin magnesium nelfinavir phenytoin warfarin What if I miss a dose? If you miss a dose, take it as soon as you can. If it is almost time for your next dose, take only that dose. Do not take double or extra doses. Where should I keep my medicine? Keep out of the reach of children. Store at room temperature between 15 and 30 degrees C (59 and 86 degrees F). Throw away any unused medicine after the expiration date. What should I tell my health care provider before I take this medicine? They need to know if you have any of these conditions: kidney disease liver disease irregular heartbeat or heart disease an unusual or allergic reaction to azithromycin, erythromycin, other macrolide antibiotics, foods, dyes, or preservatives or trying to get breast-feeding What should I watch for while using this medicine? Tell your doctor or health childcare aide if your symptoms do not improve. Do not treat diarrhea with over the counter products. Contact your doctor if you have diarrhea that lasts more than 2 days or if it is severe and watery. This medicine can make you more sensitive to the sun. Keep out of the sun. If you cannot avoid being in the sun, wear protective clothing and use sunscreen. Do not use sun lamps or tanning beds/booths. Fluticasone Propionate Nasal spray, solution What is this medicine? FLUTICASONE (floo TIK a sone) is a corticosteroid. It helps decrease inflammation in your nose. This medicine is used to treat the symptoms of allergies like sneezing, itching, and runny or stuffy nose. How should I use this medicine? This medicine is for use in the nose. Follow the directions on your prescription label. This medicine works best if used regularly. Do not use more often than directed. Make sure that you are using your nasal spray correctly. Ask you doctor or health care provider if you have any questions. Talk to your trim machine adjuster regarding the use of this medicine in children. While this drug may be prescribed for children as young as 4 years old for selected conditions, precautions do apply. What side effects may I notice from receiving this medicine? Side effects that you should report to your doctor or health childcare aide as soon as possible: allergic reactions like skin rash, itching or hives, swelling of the face, lips, or tongue changes in vision flu-like symptoms white patches or sores in the mouth or nose Side effects that usually do not require medical attention (report to your doctor or health childcare aide if they continue or are bothersome): burning or irritation inside the nose or throat cough headache nosebleed unusual taste or smell What may interact with this medicine? ketoconazole metyrapone some medicines for HIV vaccines What if I miss a dose? If you miss a dose, use it as soon as you remember. If it is almost time for your next dose, use only that dose and continue with your regular schedule. Do not use double or extra doses. Where should I keep my medicine? Keep out of the reach of children. Store at room temperature between 15 and 30 degrees C (59 and 86 degrees F). Throw away any unused medicine after the expiration date. What should I tell my health care provider before I take this medicine? They need to know if you have any of these conditions: infection, like tuberculosis, herpes, or fungal infection recent surgery on nose or sinuses taking corticosteroid by mouth an unusual or allergic reaction to fluticasone, steroids, other medicines, foods, dyes, or preservatives or trying to get breast-feeding What should I watch for while using this medicine? Visit your doctor or health childcare aide for regular checks on your progress. Some symptoms may improve within 12 hours after starting use. Check with your doctor or health childcare aide if there is no improvement in your condition after 3 weeks of use. Do not come in contact with people who have chickenpox or the measles while you are taking this medicine. If you do, call your doctor right away. You have been given the following additional information: Sinusitis, Abx Tx Azithromycin Oral tablet Fluticasone Propionate Nasal spray, solution (Electronically signed by Tobin Potts Dr. 10/08/2016 22:20)
--- NOTE | 2016-10-08 22:20 | ED MED RECONCILIATION SUMMARY ---
Patient: JASON GALLEGOS Medication Reconciliation Report [facility] VisitID: [id number] [place] [address] 46y, F Registration Date/Time: 10/08/2016 Weight: 104.3 kg Height/Length: 63 in. BMI: 40.7 ALLERGIES: Hydrocodone, LIsinopril, NSAIDs The patient's Home Medications are listed below: CONTINUE TAKING THE FOLLOWING MEDICATIONS: AmLODIPine Besylate Oral Atenolol Oral Glipizide Oral [address] Oral Lovastatin Oral MetFORMIN HCl Oral Omeprazole Oral Percocet Oral The source(s) of the original Home Medication information: Not obtained. The following Medications were given to the patient in the Emergency Department: Magnesium Hydroxide [PO] PO, administered: 10/08/2016 5:28:00 PM The following Medications were prescribed to the patient: Azithromycin 500 mg tablets: take 1 orally every day for 3 days. Total course 3 days. No refills. -- Tobin Potts Dr. [place] nasal spray: 2 sprays to each nostril daily. Dispense one (1) unit. No refills. Substitution is permissible -- Tobin Potts Dr.
--- NOTE | 2016-10-08 22:20 | ED DISCHARGE INSTRUCTIONS ---
Patient: JASON GALLEGOS General Instructions [facility] VisitID: [id number] [place] [address] 46y, F Registration Date/Time: 10/08/2016 Acute frontal sinusitis Abnormal liver function test: AST/SGOT, ALT/SGPT and alkaline phosphatase (Chronic). Mild hypomagnesemia. INSTRUCTIONS Your Current Medications: CONTINUE TAKING THE FOLLOWING MEDICATIONS: AmLODIPine Besylate Oral. Atenolol Oral. Glipizide Oral. [place] Oral. Lovastatin Oral. MetFORMIN HCl Oral. Omeprazole Oral. Percocet Oral. Prescription Medications: Azithromycin 500 mg tablets: take 1 orally every day for 3 days. Total course 3 days. No refills. Flonase nasal spray: 2 sprays to each nostril daily. Dispense one (1) unit. No refills. Substitution is permissible Follow-up: Follow up with your doctor in about two days. Call for an appointment. Blood pressure screening was not performed during this visit because the patient has an active diagnosis of hypertension. ADDITIONAL INFORMATION Sinusitis [Abx Tx] The sinuses are air-filled spaces within the bones of the face. They connect to the inside of the nose. Sinusitis is an inflammation of the tissue lining the sinus cavity. Sinus inflammation can occur during a cold or hay-fever (allergies to pollens and other particles in the air) and cause symptoms of sinus congestion and fullness. A sinus infection causes fever, headache and facial pain. There is usually green or yellow drainage from the nose or into the back of the throat (post-nasal drip). Antibiotics are prescribed to treat this condition. Home Care: Drink plenty of water, hot tea, and other liquids to stay well hydrated. This thins the mucus and promotes sinus drainage. Apply heat to the painful areas of the face. Use a towel soaked in hot water. Or, medical front desk coordinator the shower and direct the hot spray onto your face. This is a good way to inhale warm water vapor and get heat on your face at the same time. (Cover your mouth and nose with your hands so you can still breathe as you do this.) Use a vaporizer with products such as JobAppub (contains menthol) at night. Suck on peppermint, menthol or eucalyptus hard candies during the day. An expectorant containing guaifenesin (such as Robitussin), helps to thin the mucus and promote drainage from the sinuses. Gwhd-tfo-iymqxxz decongestants may be used unless a similar medicine was prescribed. Nasal sprays work the fastest. Use one that contains phenylephrine (Obie-synephrine, Sinex and others) or oxymetazoline (Afrin). First blow the nose gently to remove mucus, then apply the drops. Do not use these medicines more often than directed on the label or for more than three days or symptoms may worsen. You may also use tablets containing pseudoephedrine (Sudafed). Many sinus remedies combine ingredients, which may increase side effects. Read the labels or ask the pharmacist for help. NOTE: Persons with high blood pressure should not use decongestants. They can raise blood pressure. Antihistamines are useful if allergies are a cause of your sinusitis. The mildest one is chlorpheniramine (available without a prescription). The dose for adults is 8-12mg three times a day. [NOTE: Do not use chlorpheniramine if you have glaucoma or if you are a man with trouble urinating due to an enlarged prostate.] Claritin (loratidine) is an antihistamine that causes less drowsiness and is a good alternative for daytime use. Do not use nasal rinses or irrigation during an acute sinus infection, unless advised by your doctor. Rinsing may spread the infection to other sinuses. You may use acetaminophen (Tylenol) or ibuprofen (Motrin, Advil) to control pain, unless another pain medicine was prescribed. [ NOTE: If you have chronic liver or kidney disease or ever had a stomach ulcer, talk with your doctor before using these medicines.] (Aspirin should never be used in anyone under 18 years of age who is ill with a fever. It may cause severe liver damage.) Finish the full course, even if you are feeling better after a few days. Follow Up with your doctor or this facility in one week or as instructed by our staff if not improving. Get Prompt Medical Attention if any of the following occur: Facial pain or headache becomes more severe Stiff neck Unusual drowsiness or confusion, or not acting like your normal self Swelling of the forehead or eyelids Vision problems including blurred or double vision Fever of 100.4F (38C) or higher, or as directed by your healthcare provider Seizure Azithromycin Oral tablet What is this medicine? AZITHROMYCIN (az cary tamez) is a macrolide antibiotic. It is used to treat or prevent certain kinds of bacterial infections. It will not work for colds, flu, or other viral infections. How should I use this medicine? Take this medicine by mouth with a full glass of water. Follow the directions on the prescription label. The tablets can be taken with food or on an empty stomach. If the medicine upsets your stomach, take it with food. Take your medicine at regular intervals. Do not take your medicine more often than directed. Take all of your medicine as directed even if you think your are better. Do not skip doses or stop your medicine early. Talk to your marketing project coordinator regarding the use of this medicine in children. Special care may be needed. What side effects may I notice from receiving this medicine? Side effects that you should report to your doctor or health foster care case manager as soon as possible: allergic reactions like skin rash, itching or hives, swelling of the face, lips, or tongue confusion, nightmares or hallucinations dark urine difficulty breathing hearing loss irregular heartbeat or chest pain pain or difficulty passing urine redness, blistering, peeling or loosening of the skin, including inside the mouth white patches or sores in the mouth yellowing of the eyes or skin Side effects that usually do not require medical attention (report to your doctor or health foster care case manager if they continue or are bothersome): diarrhea dizziness, drowsiness headache stomach upset or vomiting tooth discoloration vaginal irritation What may interact with this medicine? Do not take this medicine with any of the following medications: lincomycin This medicine may also interact with the following medications: amiodarone antacids cyclosporine digoxin magnesium nelfinavir phenytoin warfarin What if I miss a dose? If you miss a dose, take it as soon as you can. If it is almost time for your next dose, take only that dose. Do not take double or extra doses. Where should I keep my medicine? Keep out of the reach of children. Store at room temperature between 15 and 30 degrees C (59 and 86 degrees F). Throw away any unused medicine after the expiration date. What should I tell my health care provider before I take this medicine? They need to know if you have any of these conditions: kidney disease liver disease irregular heartbeat or heart disease an unusual or allergic reaction to azithromycin, erythromycin, other macrolide antibiotics, foods, dyes, or preservatives or trying to get breast-feeding What should I watch for while using this medicine? Tell your doctor or health foster care case manager if your symptoms do not improve. Do not treat diarrhea with over the counter products. Contact your doctor if you have diarrhea that lasts more than 2 days or if it is severe and watery. This medicine can make you more sensitive to the sun. Keep out of the sun. If you cannot avoid being in the sun, wear protective clothing and use sunscreen. Do not use sun lamps or tanning beds/booths. Fluticasone Propionate Nasal spray, solution What is this medicine? FLUTICASONE (floo TIK a sone) is a corticosteroid. It helps decrease inflammation in your nose. This medicine is used to treat the symptoms of allergies like sneezing, itching, and runny or stuffy nose. How should I use this medicine? This medicine is for use in the nose. Follow the directions on your prescription label. This medicine works best if used regularly. Do not use more often than directed. Make sure that you are using your nasal spray correctly. Ask you doctor or health care provider if you have any questions. Talk to your marketing project coordinator regarding the use of this medicine in children. While this drug may be prescribed for children as young as 4 years old for selected conditions, precautions do apply. What side effects may I notice from receiving this medicine? Side effects that you should report to your doctor or health foster care case manager as soon as possible: allergic reactions like skin rash, itching or hives, swelling of the face, lips, or tongue changes in vision flu-like symptoms white patches or sores in the mouth or nose Side effects that usually do not require medical attention (report to your doctor or health foster care case manager if they continue or are bothersome): burning or irritation inside the nose or throat cough headache nosebleed unusual taste or smell What may interact with this medicine? ketoconazole metyrapone some medicines for HIV vaccines What if I miss a dose? If you miss a dose, use it as soon as you remember. If it is almost time for your next dose, use only that dose and continue with your regular schedule. Do not use double or extra doses. Where should I keep my medicine? Keep out of the reach of children. Store at room temperature between 15 and 30 degrees C (59 and 86 degrees F). Throw away any unused medicine after the expiration date. What should I tell my health care provider before I take this medicine? They need to know if you have any of these conditions: infection, like tuberculosis, herpes, or fungal infection recent surgery on nose or sinuses taking corticosteroid by mouth an unusual or allergic reaction to fluticasone, steroids, other medicines, foods, dyes, or preservatives or trying to get breast-feeding What should I watch for while using this medicine? Visit your doctor or health foster care case manager for regular checks on your progress. Some symptoms may improve within 12 hours after starting use. Check with your doctor or health foster care case manager if there is no improvement in your condition after 3 weeks of use. Do not come in contact with people who have chickenpox or the measles while you are taking this medicine. If you do, call your doctor right away. You have been given the following additional information: Sinusitis, Abx Tx Azithromycin Oral tablet Fluticasone Propionate Nasal spray, solution (Electronically signed by Tobin Potts Dr. 10/08/2016 22:20)
--- NOTE | 2016-10-08 22:20 | ED MAR SUMMARY ---
..... Medication Administration Record [facility] [address] [place] [address] Patient: JASON GALLEGOS Visit ID: [id number] 46y, F Weight: 104.3 kg Height/Length: 63 in BMI: 40.7 ALLERGIES: Hydrocodone, LIsinopril, NSAIDs Given 17:28 10/08/2016 Cheko Ingram R.N. Medication Administered: MAGNESIUM HYDROXIDE [PO], Dose: PO. Medication Ordered: - (Magnesium Oxide 400 mg PO x 1 now).
--- NOTE | 2016-10-08 22:20 | ED MAR SUMMARY ---
..... Medication Administration Record [facility] [address] [place] [address] Patient: JASON GALLEGOS Visit ID: [id number] 46y, F Weight: 104.3 kg Height/Length: 63 in BMI: 40.7 ALLERGIES: Hydrocodone, LIsinopril, NSAIDs Given 17:28 10/08/2016 Cheko Ingram R.N. Medication Administered: MAGNESIUM HYDROXIDE [PO], Dose: PO. Medication Ordered: - (Magnesium Oxide 400 mg PO x 1 now).
== END 2016-10-08 17:39 | disposition home or self-care (01) ==
LOC: ED SRH 14:06
DX: J01.10 Acute frontal sinusitis, unspecified (principal); R94.5 Abnormal results of liver function studies; E83.42 Hypomagnesemia; E11.9 Type 2 diabetes mellitus without complications; I10 Essential (primary) hypertension; E78.00 Pure hypercholesterolemia, unspecified
CPT/HCPCS: 90074; 90100; 90616; 92610; 92720; 95059

== ENCOUNTER 2016-11-04 14:18 | Emergency (ER) | payer OTHER ==
--- NOTE | 2016-11-04 17:34 | ED ORDER SUMMARY ---
..... Patient: JASON GALLEGOS OrderSheet [facility] VisitID: [id number] [place] [address] 46y, F Registration Date/Time: 11/04/2016 ORDER SHEET Weight: 104.3 kg (stated) Allergies: Hydrocodone, LIsinopril, NSAIDs GENERAL ORDERS: Chest 1V Urgent (15:11 11/04/2016 Asiya Gutierrez) (Ack 15:13 OSrodri) (15:41 SRoberts R.N.) Cardiac Panel Stat (15:12 11/04/2016 Asiya Gutierrez) (Ack 15:13 OSrodri) (15:41 SRoberts R.N.) BNP Urgent (15:12 11/04/2016 Asiya Gutierrez) (Ack 15:13 Odell) (15:41 SRoberts R.N.) MEDICATION ORDERS: GI Cocktail WHITE PO 30 mL with Lidocaine Viscous Mouth/Throat 15 mL, Maalox Plus Oral 15 mL (NOW) (15:12 11/04/2016 Asiya Gutierrez) (15:15 Rosy R.N.) - (Magnesium Oxide 400 mg PO x 1 now) (16:39 11/04/2016 Asiya Gutierrez) (Ack 16:47 SRoberts R.N.) (16:51 SRoberts R.N.) IV FLUIDS: IV Saline Lock (15:12 11/04/2016 Asiya Gutierrez) (15:41 SRoberts R.N.) ORDER SHEET NOTES: [Electronically signed by Elizabeth Richter R.N. (17:50 11/04/2016)] [Electronically signed by Tobin Potts Dr. (08:42 11/07/2016)] [Electronically locked/signed by Elizabeth Richter R.N. (17:50 11/04/2016)]
--- NOTE | 2016-11-04 17:34 | ED NURSING NOTES ---
Clinical Report - Nurses [facility] [address] [place] [address] 11/04/2016 14:19 Patient: JASON GALLEGOS TRIAGE 14:36 11/04/16. BP: 188/94. HR: 128. RR: 24. O2 saturation: 99%. Temp: 98.2 F. Pain level now: 11/29. --14:46 Elizabeth Richter R.N. <<STRICKEN ENTRY-- 14:36 11/04/16. BP: 188/94. HR: 128. RR: 24. O2 saturation: 99%. Temp: 98.2 F. Pain level now: 11/29. --14:46 Elizabeth Richter R.N. --END STRIKE>> Correction. --16:53 Elizabeth Richter R.N. <<STRICKEN ENTRY-- 14:36 11/04/16. BP: 181/94. HR: 128. RR: 24. O2 saturation: 99%. Temp: 98.2 F. Pain level now: 11/29. --14:46 Elizabeth Richter R.N. --END STRIKE>> Correction. --16:53 Elizabeth Richter R.N. Triage time 14:36. Acuity: LEVEL 3. Chief Complaint: RIGHT LOWER EXTREMITY PAIN, SWELLING and REDNESS. Location of symptoms- (Also c/o midsternal chest pain 11/29 took percocet 20 hoang ago[place] Alert. No acute distress. SEPSIS SCREEN: Sepsis Screen: negative. Negative (no infection suspected/documented). EPHRAIM COMA SCORE: Ephraim Coma Scale: 15- eyes open spontaneously (4); best verbal response- oriented x 4 (5); best motor response- obeys commands (6). --14:46 Elizabeth Richter R.N. 14:36 11/04/16. BP: 188/94. HR: 128. RR: 24. O2 saturation: 99%. Temp: 98.2 F. Pain level now: 11/29. --14:46 Elizabeth Richter R.N. <<[facility] ENTRY-- 14:36 11/04/16. BP: 181/94. HR: 128. RR: 24. O2 saturation: 99%. Temp: 98.2 F. Pain level now: 11/29. --14:46 Elizabeth Richter R.N. --END STRIKE>> Correction. --16:53 lEizabeth Richter R.N. <<[facility] ENTRY-- 14:36 11/04/16. BP: 188/94. HR: 128. RR: 24. O2 saturation: 99%. Temp: 98.2 F. Pain level now: 11/29. --14:46 lEizabeth Richter R.N. --END STRIKE>> Correction. --16:53 Elizabeth Richter R.N. Weight: 104.3 kg stated. Height/Length: 64 inches Per Patient. BMI: 39.5. --14:42 Elizabeth Richter R.N. Medications AmLODIPine Besylate Oral, daily. Atenolol Oral 50 mg, daily. Glipizide Oral, daily. Delacroix Oral 450mg day (stopped 3 weeks ago, me her ill ). Lovastatin Oral, daily. MetFORMIN HCl Oral 100mg bid . Omeprazole Oral 40 mg, daily. Percocet Oral 7.5/325 mg, x 2 tabs tid . --14:38 Elizabeth Richter R.N. Medication/allergy information source: the patient. --14:46 Elizabeth Richter R.N. Allergies Hydrocodone. LIsinopril. NSAIDs. --14:38 Elizabeth Richter R.N. History Arrived by private vehicle. Historian: patient. ( dropped off). No injury occurred. This occurred (3 days ago). It is described as radiating (non radiating). She has had swelling and redness. ( painful to walk on the rt lower leg). 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 PAST MEDICAL HX: Tetanus status: unknown. SOCIAL HX: Never smoker. Alcohol use; consumes beer occasionally. No drug use. FALL RISK ASSESSMENT: Fall risk assessment completed. No fall risk identified. NUTRITIONAL RISK ASSESSMENT: The nutritional risk assessment revealed no deficiencies. FUNCTIONAL ASSESSMENT: Functional assessment: no impairments noted. LEARNING NEEDS ASSESSMENT: The learning needs assessment revealed no barriers. SKIN INTEGRITY ASSESSMENT: Skin integrity risk assessment completed. No skin integrity risk identified. --14:46 Elizabeth Richter R.N. PROBLEMS: Sinusitis. Bronchitis. Hypomagnesemia. Hyponatremia. Chest Wall Pain. Abnormal Liver Function Test. Diabetes Mellitus. Hepatitis. Diabetes Mellitus Type 2. Hypercholesterolemia. Hypertension. Anxiety Reaction. Bipolar Disorder. Depression. --14:42 Elizabeth Richter R.N. Herniated disc. --14:46 Elizabeth Richter R.N. ADDITIONAL SURGERIES: Cysts removal (lower back). Gastric ByPass. L breast surgery (cyst removal). --14:42 Elizabeth Richter R.N. Interventions ID band on patient. To room. --14:46 Elizabeth Richter R.N. PHYSICAL ASSESSMENT Ambulatory to room. Patient gowned. GENERAL / NEURO / PSYCH: Appears in pain and anxious. EXTREMITIES: Erythema on the extremities. Limited ROM present. Increased warmth on the extremities. Lower extremity edema. Right leg: tenderness, swelling and erythema. SKIN: Skin intact. Skin is warm and dry. --14:47 Elizabeth Richter R.N. NURSING PROGRESS NOTES tire retreader, pulse oximeter and NIBP monitor placed on patient; sex crimes detective- Lead II; monitor alarms on. Extremity elevated. Patient gowned. Two patient identifiers checked. Call light placed in reach. Side rails up x 2. Bed placed in lowest position. Brakes of bed on. --14:47 Elizabeth Richter R.N. ( Patient states, "I had some spicy food a couple days ago.). --14:48 Elizabeth Richter R.N. EKG time: (1442). EKG was ordered, performed and shown to the ED physician. --14:50 Pauline Butler 15:15 11/04/2016 GI COCKTAIL WHITE (Simethicone) PO 30 mL given. Allergies verified and confirmed 5 rights. --15:15 Ines Potts R.N. 15:41 11/04/2016 Site #1 started via IV in the right forearm with an 20g angiocath, with aseptic technique and good blood return; one attempt. Blood drawn: rainbow set. Labeled in the presence of the patient and sent to the lab. Saline lock flushed with 10 mL saline. --15:41 Elizabeth Richter R.N. 16:51 11/04/2016 magnesium oxide * PO 400 mg --16:51 Elizabeth Richter R.N. 16:53 11/04/16. BP: 130/77. HR: 84. RR: 18. O2 saturation: 99% on room air. Temp: deferred. Pain level now: 10/29. 15:33 11/04/16. BP: 149/74. HR: 79. RR: 18. O2 saturation: 98% on room air. Pain level now: 11/29. 14:36 11/04/16. BP: 188/94. HR: 128. RR: 24. O2 saturation: 99%. Temp: 98.2 F. Pain level now: 11/29. 14:31 11/04/16. BP: 137/77. HR: 89. RR: 18. O2 saturation: 99% on room air. Pain level now: 11/29. --16:54 Elizabeth Richter R.N. 17:40 11/04/2016 Site #1 removed upon discharge. Catheter intact. Bandaid applied. --17:50 Elizabeth Richter R.N. DISPOSITION / DISCHARGE Condition at departure: improved. No learning barriers present. Reviewed medication(s) side effects, precautions, dosing and course information. Prescription(s) given to the patient. Patient verbalized understanding. Written instructions provided in Portuguese. The patient was discharged home and accompanied by mounting inspector. She left the Emergency Department ambulatory and via private vehicle. Barrel Endshaker Adjuster driving. Medication list reviewed and validated. --17:49 Elizabeth Richter R.N. 17:48 11/04/16. BP: 139/88. HR: 98. RR: 20. O2 saturation: 100%. Temp: deferred. Pain level now: 09/29. 16:53 11/04/16. BP: 130/77. HR: 84. RR: 18. O2 saturation: 99% on room air. Temp: deferred. Pain level now: 10/29. 15:33 11/04/16. BP: 149/74. HR: 79. RR: 18. O2 saturation: 98% on room air. Pain level now: 11/29. 14:36 11/04/16. BP: 188/94. HR: 128. RR: 24. O2 saturation: 99%. Temp: 98.2 F. Pain level now: 11/29. 14:31 11/04/16. BP: 137/77. HR: 89. RR: 18. O2 saturation: 99% on room air. Pain level now: 11/29. --17:49 Elizabeth Richter R.N. Locked/Released at 11/04/2016 17:50 by Elizabeth Richter R.N.
--- NOTE | 2016-11-04 17:34 | ED NURSING NOTES ---
Clinical Report - Nurses [facility] [address] [place] [address] 11/04/2016 14:19 Patient: JASON GALLEGOS TRIAGE 14:36 11/04/16. BP: 188/94. HR: 128. RR: 24. O2 saturation: 99%. Temp: 98.2 F. Pain level now: 11/29. --14:46 Elizabeth Richter R.N. <<STRICKEN ENTRY-- 14:36 11/04/16. BP: 188/94. HR: 128. RR: 24. O2 saturation: 99%. Temp: 98.2 F. Pain level now: 11/29. --14:46 Elizabeth Richter R.N. --END STRIKE>> Correction. --16:53 Elizabeth Richter R.N. <<STRICKEN ENTRY-- 14:36 11/04/16. BP: 181/94. HR: 128. RR: 24. O2 saturation: 99%. Temp: 98.2 F. Pain level now: 11/29. --14:46 Elizabeth Richter R.N. --END STRIKE>> Correction. --16:53 Elizabeth Richter R.N. Triage time 14:36. Acuity: LEVEL 3. Chief Complaint: RIGHT LOWER EXTREMITY PAIN, SWELLING and REDNESS. Location of symptoms- (Also c/o midsternal chest pain 11/29 took percocet 20 hoang ago[place] Alert. No acute distress. SEPSIS SCREEN: Sepsis Screen: negative. Negative (no infection suspected/documented). EPHRAIM COMA SCORE: Ephraim Coma Scale: 15- eyes open spontaneously (4); best verbal response- oriented x 4 (5); best motor response- obeys commands (6). --14:46 Elizabeth Richter R.N. 14:36 11/04/16. BP: 188/94. HR: 128. RR: 24. O2 saturation: 99%. Temp: 98.2 F. Pain level now: 11/29. --14:46 Elizabeth Richter R.N. <<[facility] ENTRY-- 14:36 11/04/16. BP: 181/94. HR: 128. RR: 24. O2 saturation: 99%. Temp: 98.2 F. Pain level now: 11/29. --14:46 Elizabeth Richter R.N. --END STRIKE>> Correction. --16:53 Elizabeth Richter R.N. <<[facility] ENTRY-- 14:36 11/04/16. BP: 188/94. HR: 128. RR: 24. O2 saturation: 99%. Temp: 98.2 F. Pain level now: 11/29. --14:46 Elizabeth Richter R.N. --END STRIKE>> Correction. --16:53 Elizabeth Richter R.N. Weight: 104.3 kg stated. Height/Length: 64 inches Per Patient. BMI: 39.5. --14:42 Elizabeth Richter R.N. Medications AmLODIPine Besylate Oral, daily. Atenolol Oral 50 mg, daily. Glipizide Oral, daily. Marie Oral 450mg day (stopped 3 weeks ago, me her ill ). Lovastatin Oral, daily. MetFORMIN HCl Oral 100mg bid . Omeprazole Oral 40 mg, daily. Percocet Oral 7.5/325 mg, x 2 tabs tid . --14:38 Elizabeth Richter R.N. Medication/allergy information source: the patient. --14:46 Elizabeth Richter R.N. Allergies Hydrocodone. LIsinopril. NSAIDs. --14:38 Elizabeth Richter R.N. History Arrived by private vehicle. Historian: patient. ( dropped off). No injury occurred. This occurred (3 days ago). It is described as radiating (non radiating). She has had swelling and redness. ( painful to walk on the rt lower leg). Treatment ASSISTED LIVING COORDINATOR: (percocet). PAST MEDICAL HX: Tetanus status: unknown. SOCIAL HX: Never smoker. Alcohol use; consumes beer occasionally. No drug use. FALL RISK ASSESSMENT: Fall risk assessment completed. No fall risk identified. NUTRITIONAL RISK ASSESSMENT: The nutritional risk assessment revealed no deficiencies. FUNCTIONAL ASSESSMENT: Functional assessment: no impairments noted. LEARNING NEEDS ASSESSMENT: The learning needs assessment revealed no barriers. SKIN INTEGRITY ASSESSMENT: Skin integrity risk assessment completed. No skin integrity risk identified. --14:46 Elizabeth Richter R.N. PROBLEMS: Sinusitis. Bronchitis. Hypomagnesemia. Hyponatremia. Chest Wall Pain. Abnormal Liver Function Test. Diabetes Mellitus. Hepatitis. Diabetes Mellitus Type 2. Hypercholesterolemia. Hypertension. Anxiety Reaction. Bipolar Disorder. Depression. --14:42 Elizabeth Richter R.N. Herniated disc. --14:46 Elizabeth Richter R.N. ADDITIONAL SURGERIES: Cysts removal (lower back). Gastric ByPass. L breast surgery (cyst removal). --14:42 Elizabeth Richter R.N. Interventions ID band on patient. To room. --14:46 Elizabeth Richter R.N. PHYSICAL ASSESSMENT Ambulatory to room. Patient gowned. GENERAL / NEURO / PSYCH: Appears in pain and anxious. EXTREMITIES: Erythema on the extremities. Limited ROM present. Increased warmth on the extremities. Lower extremity edema. Right leg: tenderness, swelling and erythema. SKIN: Skin intact. Skin is warm and dry. --14:47 Elizabeth Richter R.N. NURSING PROGRESS NOTES nailing machine feeder, pulse oximeter and NIBP monitor placed on patient; reinforcing steel machine operator- Lead II; monitor alarms on. Extremity elevated. Patient gowned. Two patient identifiers checked. Call light placed in reach. Side rails up x 2. Bed placed in lowest position. Brakes of bed on. --14:47 Elizabeth Richter R.N. ( Patient states, "I had some spicy food a couple days ago.). --14:48 Elizabeth Richter R.N. EKG time: (1442). EKG was ordered, performed and shown to the ED physician. --14:50 Pauline Butler 15:15 11/04/2016 GI COCKTAIL WHITE (Simethicone) PO 30 mL given. Allergies verified and confirmed 5 rights. --15:15 Ines Potts R.N. 15:41 11/04/2016 Site #1 started via IV in the right forearm with an 20g angiocath, with aseptic technique and good blood return; one attempt. Blood drawn: rainbow set. Labeled in the presence of the patient and sent to the lab. Saline lock flushed with 10 mL saline. --15:41 Elizabeth Richter R.N. 16:51 11/04/2016 magnesium oxide * PO 400 mg --16:51 Elizabeth Richter R.N. 16:53 11/04/16. BP: 130/77. HR: 84. RR: 18. O2 saturation: 99% on room air. Temp: deferred. Pain level now: 10/29. 15:33 11/04/16. BP: 149/74. HR: 79. RR: 18. O2 saturation: 98% on room air. Pain level now: 11/29. 14:36 11/04/16. BP: 188/94. HR: 128. RR: 24. O2 saturation: 99%. Temp: 98.2 F. Pain level now: 11/29. 14:31 11/04/16. BP: 137/77. HR: 89. RR: 18. O2 saturation: 99% on room air. Pain level now: 11/29. --16:54 Elizabeth Richter R.N. 17:40 11/04/2016 Site #1 removed upon discharge. Catheter intact. Bandaid applied. --17:50 Elizabeth Richter R.N. DISPOSITION / DISCHARGE Condition at departure: improved. No learning barriers present. Reviewed medication(s) side effects, precautions, dosing and course information. Prescription(s) given to the patient. Patient verbalized understanding. Written instructions provided in Sami. The patient was discharged home and accompanied by mounter flutes and piccolos. She left the Emergency Department ambulatory and via private vehicle. Geothermal Production Manager driving. Medication list reviewed and validated. --17:49 Elizabeth Richter R.N. 17:48 11/04/16. BP: 139/88. HR: 98. RR: 20. O2 saturation: 100%. Temp: deferred. Pain level now: 09/29. 16:53 11/04/16. BP: 130/77. HR: 84. RR: 18. O2 saturation: 99% on room air. Temp: deferred. Pain level now: 10/29. 15:33 11/04/16. BP: 149/74. HR: 79. RR: 18. O2 saturation: 98% on room air. Pain level now: 11/29. 14:36 11/04/16. BP: 188/94. HR: 128. RR: 24. O2 saturation: 99%. Temp: 98.2 F. Pain level now: 11/29. 14:31 11/04/16. BP: 137/77. HR: 89. RR: 18. O2 saturation: 99% on room air. Pain level now: 11/29. --17:49 Elizabeth Richter R.N. Locked/Released at 11/04/2016 17:50 by Elizabeth Richter R.N.
--- NOTE | 2016-11-04 17:34 | ED ORDER SUMMARY ---
..... Patient: JASON GALLEGOS OrderSheet [facility] VisitID: [id number] [place] [address] 46y, F Registration Date/Time: 11/04/2016 ORDER SHEET Weight: 104.3 kg (stated) Allergies: Hydrocodone, LIsinopril, NSAIDs GENERAL ORDERS: Chest 1V Urgent (15:11 11/04/2016 Asiya Gutierrez) (Ack 15:13 OSrodri) (15:41 SRoberts R.N.) Cardiac Panel Stat (15:12 11/04/2016 Asiya Gutierrez) (Ack 15:13 OSrodri) (15:41 SRoberts R.N.) BNP Urgent (15:12 11/04/2016 Asiya Gutierrez) (Ack 15:13 Odell) (15:41 SRoberts R.N.) MEDICATION ORDERS: GI Cocktail WHITE PO 30 mL with Lidocaine Viscous Mouth/Throat 15 mL, Maalox Plus Oral 15 mL (NOW) (15:12 11/04/2016 Asiya Gutierrez) (15:15 Rosy R.N.) - (Magnesium Oxide 400 mg PO x 1 now) (16:39 11/04/2016 Asiya Gutierrez) (Ack 16:47 SRoberts R.N.) (16:51 SRoberts R.N.) IV FLUIDS: IV Saline Lock (15:12 11/04/2016 Asiya Gutierrez) (15:41 SRoberts R.N.) ORDER SHEET NOTES: [Electronically signed by Elizabeth Richter R.N. (17:50 11/04/2016)] [Electronically signed by Tobin Potts Dr. (08:42 11/07/2016)] [Electronically locked/signed by Elizabeth Richter R.N. (17:50 11/04/2016)]
--- NOTE | 2016-11-04 17:34 | ED CLINICAL REPORT ---
Clinical Report - Physicians/Mid Levels [facility] [address] [place] [address] 11/04/2016 14:19 Patient: JASON GALLEGOS Time Seen: 14:57; initial patient contact. Arrived- By private vehicle. Historian- patient. HISTORY OF PRESENT ILLNESS Chief Complaint: CHEST PAIN. At its maximum, severity described as moderate. When seen in the E.D., severity described as moderate. Modifying factors- worsened by food. Not relieved by antacids. It is described as tightness and burning and it is described as located in the central chest area. No radiation. This started about 3 days ago and is still present. The patient cannot recall the circumstances at the onset. The patient has had nausea. No vomiting, difficulty breathing or diaphoresis. Similar symptoms previously: Many times. Recent medical care: Not recently seen/assessed. REVIEW OF SYSTEMS No fever, chills, sore throat, abdominal pain or black stools. No bloody stools. She has had moderate pedal edema involving the right lower extremity. She has had skin rash. All systems otherwise negative, except as recorded above. PAST HISTORY Sinusitis. Bronchitis. Hypomagnesemia. Hyponatremia. Chest Wall Pain. Abnormal Liver Function Test. Diabetes Mellitus. Hepatitis. Diabetes Mellitus Type 2. Hypercholesterolemia. Hypertension. Anxiety Reaction. Bipolar Disorder. Depression. Herniated disc. SURGERIES: Cysts removal (lower back). Gastric ByPass. L breast surgery (cyst removal). SOCIAL HISTORY Never smoker. Occasional alcohol use. No drug use. ADDITIONAL NOTES The nursing notes have been reviewed. PHYSICAL EXAM Vital Signs: 11/04/2016 14:31 BP: 137/77. HR: 89. RR: 18. O2 saturation: 99%. Pain level now: 8/10. Have been reviewed as normal. Appearance: Alert. Oriented X3. No acute distress. Eyes: Eyes normal inspection. ENT: Pharynx normal. Neck: Normal inspection. No JVD. CVS: Normal heart rate and rhythm. Heart sounds normal. Respiratory: No respiratory distress. Breath sounds normal. Chest nontender. Skin: Skin warm and dry. Mild, well-demarcated, erythematous, blanching skin rash located on the right leg. Extremities: 1+ non-pitting edema of the right lower extremity involving the lower leg. Neuro: Oriented X 3. LABS, X-RAYS, AND EKG Laboratory Tests: CBC w Diff: (RINA: 11/04/2016 15:30) ( [facility] 11/04/2016 15:52) Final results Test Result Flag Units (Reference) WHITE BLOOD COUNT 6.0 K/uL (4.5-11.5) RED BLOOD COUNT 4.13 M/uL (4.00-5.20) HEMOGLOBIN 12.9 gm/dL (12.0-16.0) HEMATOCRIT 38.1 % (36.0-46.0) MEAN CELL VOLUME 92 fL (80-100) MEAN CORPUSCULAR HGB 31 pg (26-34) MEAN CORPUSCULAR HGB CONC 34 g/dL (31-37) RED CELL DISTRIBUTION WIDTH 13.3 % (11.6-14.8) PLATELET COUNT 164 K/uL (150-400) NEUTROPHIL % 68.0 % (50-75) LYMPH % 22.5 L % (25-40) MONO % 6.9 % (3-14) EOSINOPHIL % 2.1 % (0-4) BASOPHIL % 0.5 % (0-2) BNP: (RINA: 11/04/2016 15:30) ( [facility] 11/04/2016 16:12) Final results Test Result Flag Units (Reference) B-TYPE NATRIURETIC PEPTIDE 47.3 pg/ml (5-100) CHEM 13 PANEL: (RINA: 11/04/2016 15:30) ( [facility] 11/04/2016 16:36) Final results Test Result Flag Units (Reference) GLUCOSE 204 H mg/dL (70-110) BUN 8 mg/dL (7-18) CREATININE 0.8 mg/dL (0.6-1.3) Estimated GFR >60 mL/min Estimated GFR- >60 mL/min Note: Persistent reduction over 3 months in eGFR<60 mL/min/1.73 m2 defines CKD. Patients with eGFR values>=60 mL/min/1.73 m2 may also have CKD if evidence ofpersistent proteinuria. Additional information may be foundat www.kidney.org. SODIUM 136 mmol/L (136-145) POTASSIUM 4.4 mmol/L (3.5-5.1) CHLORIDE 102 mmol/L (98-107) CARBON DIOXIDE 26 mmol/L (21-32) CALCIUM 8.4 L mg/dL (8.5-10.1) TOTAL PROTEIN 8.3 H g/dL (6.4-8.2) ALBUMIN 3.3 g/dL (3.3-5.0) BILIRUBIN, TOTAL 0.6 mg/dL (0.0-1.0) ALKALINE PHOSPHATASE 168 H U/L (46-116) AST (SGOT) 183 H U/L (15-37) ALT (SGPT) 123 H U/L (12-78) CPK 310 H U/L (24-260) MAGNESIUM 1.4 L mg/dL (1.8-2.4) CK-MB 2.9 ng/mL (0.5-3.2) %CKMB 0.9 % (0.0-4.0) TROPONIN I <0.05 L ng/mL (0.00-1.5) TROPONIN REFERENCE RANGE:<0.1 NEGATIVE0.1-1.5 INDETERMINANT>1.5 POSITIVE . PROGRESS AND PROCEDURES Disposition: Discharged home in good and improved condition. Condition: good. CLINICAL IMPRESSION Gastroesophageal reflux disease with esophagitis. Cellulitis of the right lower leg. INSTRUCTIONS Follow a low salt diet. Your Current Medications: CONTINUE TAKING THE FOLLOWING MEDICATIONS: AmLODIPine Besylate Oral : daily. Atenolol Oral : 50 mg daily. Glipizide Oral : daily. B[place]ins Oral : 450mg day, stopped 3 weeks ago, me her ill. Lovastatin Oral : daily. MetFORMIN HCl Oral : 100mg bid. Omeprazole Oral : 40 mg daily. Percocet Oral : 7.5/325 mg, x 2 tabs tid. Prescription Medications: Clindamycin 300 mg: take 1 capsule orally every 6 hours for 7 days. No refill. Zantac 150 mg: take 1 orally every 12 hours. Dispense sixty (60). No refills. Substitution is permissible. Follow-up: Follow up with your doctor in about two days. Call for an appointment. Blood pressure screening was not performed during this visit because the patient has an active diagnosis of hypertension. (Electronically signed by Tobin Potts Dr. 11/07/2016 8:42)
--- NOTE | 2016-11-04 17:39 | DIAGNOSTIC IMAGING REPORT ---
PROCEDURE: XR CHEST 1 VIEW INDICATION: SHORTNESS OF BREATH TECHNIQUE: Portable AP view (1520 hours). COMPARISON: Compared to chest x-ray on 10/08/2016. FINDINGS: Lungs are clear. Heart and mediastinum are normal. Thorax is normal. IMPRESSION: 1. Negative chest.
--- NOTE | 2016-11-07 08:43 | ED MAR SUMMARY ---
..... Medication Administration Record [facility] [address] [place] [address] Patient: JASON GALLEGOS Visit ID: [id number] 46y, F Weight: 104.3 kg Height/Length: 64 in BMI: 39.5 ALLERGIES: Hydrocodone, LIsinopril, NSAIDs Given 15:15 11/04/2016 Ines Potts RGood Medication Administered: GI COCKTAIL WHITE [PO] (SIMETHICONE), Dose: 30 mL PO. Medication Ordered: GI Cocktail WHITE PO 30 mL with Lidocaine Viscous Mouth/Throat 15 mL, Maalox Plus Oral 15 mL (NOW). Given 16:51 11/04/2016 Elizabeth Richter R.N. Medication Administered: magnesium oxide *, Dose: 400 mg * PO. Medication Ordered: - (Magnesium Oxide 400 mg PO x 1 now).
--- NOTE | 2016-11-07 08:43 | ED MED RECONCILIATION SUMMARY ---
Patient: JASON GALLEGOS Medication Reconciliation Report [facility] VisitID: [id number] [place] [address] 46y, F Registration Date/Time: 11/04/2016 Weight: 104.3 kg Height/Length: 64 in. BMI: 39.5 ALLERGIES: Hydrocodone, LIsinopril, NSAIDs The patient's Home Medications are listed below: CONTINUE TAKING THE FOLLOWING MEDICATIONS: AmLODIPine Besylate Oral, daily Atenolol Oral 50 mg, daily Glipizide Oral, daily [place] Oral 450mg day , stopped 3 weeks ago, me her ill Lovastatin Oral, daily MetFORMIN HCl Oral 100mg bid Omeprazole Oral 40 mg, daily Percocet Oral 7.5/325 mg, x 2 tabs tid The source(s) of the original Home Medication information: patient The following Medications were given to the patient in the Emergency Department: GI COCKTAIL WHITE [PO] PO 30 mL, administered: 11/04/2016 3:15:00 PM magnesium oxide PO 400 mg, administered: 11/04/2016 4:51:00 PM The following Medications were prescribed to the patient: Clindamycin 300 mg: take 1 capsule orally every 6 hours for 7 days. No refill. -- Tobin Potts Dr. Zantac 150 mg: take 1 orally every 12 hours. Dispense sixty (60). No refills. Substitution is permissible. -- Tobin Potts Dr.
--- NOTE | 2016-11-07 08:43 | ED DISCHARGE INSTRUCTIONS ---
Patient: JASON GALLEGOS General Instructions [facility] VisitID: [id number] [place] [address] 46y, F Registration Date/Time: 11/04/2016 Gastroesophageal reflux disease with esophagitis. Cellulitis of the right lower leg. INSTRUCTIONS Follow a low salt diet. Your Current Medications: CONTINUE TAKING THE FOLLOWING MEDICATIONS: AmLODIPine Besylate Oral : daily. Atenolol Oral : 50 mg daily. Glipizide Oral : daily. [place] Oral : 450mg day, stopped 3 weeks ago, me her ill. Lovastatin Oral : daily. MetFORMIN HCl Oral : 100mg bid. Omeprazole Oral : 40 mg daily. Percocet Oral : 7.5/325 mg, x 2 tabs tid. Prescription Medications: Clindamycin 300 mg: take 1 capsule orally every 6 hours for 7 days. No refill. Zantac 150 mg: take 1 orally every 12 hours. Dispense sixty (60). No refills. Substitution is permissible. Follow-up: Follow up with your doctor in about two days. Call for an appointment. Blood pressure screening was not performed during this visit because the patient has an active diagnosis of hypertension. ADDITIONAL INFORMATION GERD (Adult) The esophagus is a tube that carries food from the mouth to the stomach. A valve at the lower end of the esophagus prevents stomach acid from flowing upward. If this valve does not work properly, acid from the stomach enters the esophagus. If this occurs over and over, the acid will injure the lining of the esophagus. This condition is called GERD (gastroesophageal reflux disease) or acid reflux. When stomach acid flows upward into the esophagus, it causes burning, pressure or sharp pain in the upper abdomen or mid to lower chest. The pain can spread to the neck, back, or shoulder, similar to heart pain (angina). There may be belching, an acid taste in the back of the throat, chronic cough, or sore throat or hoarseness. GERD symptoms often occur during the day after a big meal, but it can also occur at night when lying down. Smoking,as well as drinking alcohol, increases the risk of GERD. GERD is a chronic condition. Once it begins, it is often lifelong. Treatment includes changes in eating habits and the use of acid zackary medications to decrease the amount of acid in the stomach. Symptoms often improve with treatment, but if treatment is stopped, the symptoms usually return after a few months. So most persons with GERD will need to continue treatment. Home Care: Take the prescribed acid zackary medication for the full course of treatment even if you begin to feel better sooner. This medication can take up to several days to fully control your symptoms. If you cant afford the prescribed medication, you can try [id number] acid blockers, such as Pepcid AC, Tagamet, Zantac, or Aciphex. If these do not relieve your symptoms, a stronger acid-zackary can be tried, such as Prilosec OTC. You can use antacids, such as Tums, Rolaids, Mylanta, or Maalox, for pain. This will be useful the first few days after starting acid blockers when the blockers havent started working yet. Follow the directions on the label. Liquid antacids may work better than tablets. Note that antacids can interfere with absorption of certain medications. Specifically, do not take Tagamet (cimetidine), Zantac (ranitidine), or Carafate (sucralfate) within 1 hour of taking an antacid. Talk with your pharmacist if you have any questions. Limit or avoid fatty, fried, and spicy foods, as well as coffee, chocolate, mint, and foods with high acid content such as tomatoes and citrus fruit and juices (orange, grapefruit, lemon). Avoid alcohol and smoking. Dont eat large meals, especially at night. Frequent, smaller meals are best. Do not lie down right after eating. And dont eat anything 3 hours before going to bed. If you are overweight, losing weight will reduce symptoms. Women should not wear corsets or girdles because this increases pressure on the stomach and worsens reflux. If your symptoms occur during sleep, use a foam wedge to elevate your upper body (not just your head.) Or, place 4" blocks under the head of your bed. Follow Up with your doctor or as advised by our staff. Further testing may be needed. If you do not begin to improve over the next 4 days, contact your doctor. If you had an x-ray, CT scan, or ECG (electrocardiogram), it will be reviewed by a specialist. Youll be notified of any new findings that affect your care. Get Prompt Medical Attention if any of the following occur: Stomach pain gets worse or moves to the lower right abdomen (appendix area) Chest pain appears or gets worse, or spreads to the back, neck, shoulder, or arm Frequent vomiting (cant keep down liquids) Blood in the stool or vomit (red or black in color) Feeling weak or dizzy, fainting, or trouble breathing Fever of 100.4F (38C) or higher, or as directed by your healthcare provider Esophageal Spasm The esophagus is a muscular tube that joins your mouth to your stomach. Normal waves of contraction help food move down the esophagus to reach the stomach. Esophageal spasms are abnormal contractions of these muscles. When the muscles are in spasm it may feel like the food is stuck and wont go down. It may cause a feeling of heartburn or a squeezing type of chest pain that can feel just like heart pain (angina). The pain may spread to the neck, arm or back. If you try to swallow more food or liquid during a spasm, it may come back up within seconds. The cause of esophageal spasm is not known but it is more common in people with acid reflux disease (also called "GERD" or "Esophagitis"). Very hot or very cold foods or foods that are not chewed enough before swallowing may trigger an episode. Special tests may be ordered to confirm the diagnosis if there is doubt. Medicine is used to prevent or treat symptoms in most cases. Severe symptoms can be treated with surgery. Home Care: If you are prone to acid reflux and heartburn symptoms, your doctor may prescribe acid-blocking medicine. If not, you can use over the counter medicines as a preventive if you get symptoms often. The following medicines are available without a prescription: Antacids: Neutralize stomach acid. (such as Gaviscon, Mylanta, Tums or Rolaids) Acid-Blockers: Reduce the production of acid in the stomach. (Axid, Pepcid-AC, Tagamet-HB, Zantac, Prilosec-OTC). Learn to recognize if certain foods are causing your spasm and avoid these. Avoid very hot and very cold foods if this is a trigger for you. Eat slowly and chew food well before swallowing. Follow Up with your doctor or as advised by our staff. Get Prompt Medical Attention if any of the following occur: Chest pain or pain in the neck, back, shoulder or arm that does not respond to the treatment recommended Food that feels "stuck" in the esophagus for more than 30 minutes Inability to swallow solid or liquids for more than 30 minutes Symptoms that feel like esophageal spasm but occur with heavy sweating, dizziness, fainting or shortness of breath Change in the usual patterns of your symptoms of esophageal spasm (new pattern of spreading to the neck, back, shoulder or arm; pain that is more severe than usual) Cellulitis You have an infection of the skin known as cellulitis. This usually starts with a scrape, cut, insect bite, blister or other opening in the skin which becomes infected. This is a serious condition. It must be watched closely to be sure the infection is not spreading. With antibiotic treatment, the size of the red area will gradually shrink in size until the skin returns to normal. This will take 7-10 days. The red area should never increase in size once the antibiotic medicine has been started. Occasionally, an infection will be resistant to one antibiotic and another one will have to be used. Home Care: 1) Limit the use of the affected part, since excess movement can cause the infection to spread. 2) If the infection is on your leg, walk as little as possible during the first few days of the treatment. Keep your leg elevated while sitting. This will reduce swelling. 3) Take all of the antibiotic medicine exactly as directed until it is gone. Be careful not to miss any doses, especially during the first seven days. Follow Up with your doctor or this facility as directed. Check the infected area daily for the warning signs listed below. Get Prompt Medical Attention if any of the following occur: -- Spreading area of redness -- Increasing swelling or pain -- Appearance of pus or drainage -- Fever over 100.4 F (38.0 C) oral, or over 101.4 F (38.6 C) rectal, after two days on antibiotics Low-Salt Diet (2 Grams/Day) This diet eliminates foods that are high in salt and restricts the amount of salt that you cook with. It is most often used for patients with high blood pressure, edema (fluid retention), kidney, liver, and heart disease. Table salt contains the mineral sodium. The body needs sodium to work normally. But too much sodium can make your health problems worse. Your healthcare provider is recommending a low-salt (also called low-sodium) diet for you. Your total daily allowance of salt (sodium) is 2 grams. This equals 2,000 milligrams (mg). It is less than 1 teaspoon of table salt. This means you can have only about 700 mg of sodium at each meal. When you cook, limit the salt you use. And if you can avoid using salt, even better. Do not add salt at the table. So, throw away the saltshaker! When shopping, read the package labels. Salt is often called sodium on the label. Choose foods that are Salt-Free, Low Salt, or Very Low Salt. Note that foods with Reduced Salt may notlower your salt intake enough. Beverages OK: Tea, coffee, carbonated beverages, juices AVOID: Flavored international coffees, electrolyte replacement drinks, sports beverages Bread & Cereals OK: All regular bread, rolls, cereals, cakes; low-salt crackers, matzoh crackers AVOID: Salted crackers, pretzels, popcorn; amharic toast, pancakes, muffins Fruits & Desserts OK: Ice cream, frozen yogurt, juice bars, gelatin (Jell-O), cookies and pies, sugar, honey, jelly, hard candy AVOID: Most pies, cakes and cookies prepared or processed with salt, instant pudding Meats OK: All fresh meat, fish, poultry, low-salt tuna AVOID: Smoked, pickled, brine-cured, or salted meats or fish. Thisincludes diggs, chipped beef, corned beef, hot dogs, luncheon meats, ham, kosher meats, salt pork, sausage, canned tuna, salted codfish, smokedsalmon, walker, sardines, or anchovies. Dairy OK: Milk, chocolate milk, hot chocolate mix; eggs, Low Salt cheeses, yogurt, egg substitute AVOID: Processed cheese, cheese spreads, Roquefort, Camembert, and cottage cheese, buttermilk, instant breakfast drink Beans, Potatoes & Pasta OK: Dry beans, split peas, lentils, potatoes, rice, macaroni, noodles, spaghetti without added salt AVOID: Potato chips, tortilla chips, and similar products Soups OK: Low-salt soups and broths made with allowed foods AVOID: Bouillon cubes, soups with smoked or salted meats, regular soup and broth Vegetables OK: Most are okay; low-salt tomato and vegetable juices AVOID: Sauerkraut and other brine-soaked vegetables, pickles and other pickled vegetables, tomato juice, olives Seasoning & Spices OK: Most seasonings are okay. Good substitutes for salt include: fresh herb blends, Tabasco, lemon, garlic, brandon, vinegar, dry mustard, parsley, cilantro, horseradish, tomato paste, regular margarine, mayonnaise, butter, cream cheese, vegetable oil, cream, low-salt salad dressing and gravy AVOID: Regular ketchup, relishes, pickles, soy sauce, teriyaki sauce, Worcestershire sauce, BBQ sauce, tartar sauce, meat tenderizer, chili sauce, regular gravy, regular salad dressing Clindamycin Hydrochloride Oral capsule What is this medicine? CLINDAMYCIN (KLIN da CB sin) is a lincosamide antibiotic. It is used to treat certain kinds of bacterial infections. It will not work for colds, flu, or other viral infections. How should I use this medicine? Take this medicine by mouth with a full glass of water. Follow the directions on the prescription label. You can take this medicine with food or on an empty stomach. If the medicine upsets your stomach, take it with food. Take your medicine at regular intervals. Do not take your medicine more often than directed. Take all of your medicine as directed even if you think your are better. Do not skip doses or stop your medicine early. Talk to your switch cleaner regarding the use of this medicine in children. Special care may be needed. What side effects may I notice from receiving this medicine? Side effects that you should report to your doctor or health career technical education instructor as soon as possible: allergic reactions like skin rash, itching or hives, swelling of the face, lips, or tongue dark urine pain on swallowing redness, blistering, peeling or loosening of the skin, including inside the mouth unusual bleeding or bruising unusually weak or tired yellowing of eyes or skin Side effects that usually do not require medical attention (report to your doctor or health career technical education instructor if they continue or are bothersome): diarrhea itching in the rectal or genital area joint pain nausea, vomiting stomach pain What may interact with this medicine? chloramphenicol erythromycin kaolin products What if I miss a dose? If you miss a dose, take it as soon as you can. If it is almost time for your next dose, take only that dose. Do not take double or extra doses. Where should I keep my medicine? Keep out of the reach of children. Store at room temperature between 20 and 25 degrees C (68 and 77 degrees F). Throw away any unused medicine after the expiration date. What should I tell my health care provider before I take this medicine? They need to know if you have any of these conditions: kidney disease liver disease stomach problems like colitis an unusual or allergic reaction to clindamycin, lincomycin, or other medicines, foods, dyes like tartrazine or preservatives or trying to get breast-feeding What should I watch for while using this medicine? Tell your doctor or healthcare professional if your symptoms do not start to get better or if they get worse. Do not treat diarrhea with over the counter products. Contact your doctor if you have diarrhea that lasts more than 2 days or if it is severe and watery. Ranitidine Hydrochloride Oral tablet What is this medicine? RANITIDINE (ra ITZEL castillo) is a type of antihistamine that blocks the release of stomach acid. It is used to treat stomach or intestinal ulcers. It can relieve ulcer pain and discomfort, and the heartburn from acid reflux. How should I use this medicine? Take this medicine by mouth with a glass of water. Follow the directions on the prescription label. If you only take this medicine once a day, take it at bedtime. Take your medicine at regular intervals. Do not take your medicine more often than directed. Do not stop taking except on your doctor's advice. Talk to your switch cleaner regarding the use of this medicine in children. Special care may be needed. What side effects may I notice from receiving this medicine? Side effects that you should report to your doctor or health career technical education instructor as soon as possible: agitation, nervousness, depression, hallucinations allergic reactions like skin rash, itching or hives, swelling of the face, lips, or tongue breast enlargement in both males and females breathing problems redness, blistering, peeling or loosening of the skin, including inside the mouth unusual bleeding or bruising unusually weak or tired vomiting yellowing of the skin or eyes Side effects that usually do not require medical attention (report to your doctor or health career technical education instructor if they continue or are bothersome): constipation or diarrhea dizziness headache nausea What may interact with this medicine? atazanavir delavirdine gefitinib glipizide ketoconazole midazolam procainamide propantheline triazolam warfarin What if I miss a dose? If you miss a dose, take it as soon as you can. If it is almost time for your next dose, take only that dose. Do not take double or extra doses. Where should I keep my medicine? Keep out of the reach of children. Store at room temperature between 15 and 30 degrees C (59 and 86 degrees F). Protect from light and moisture. Keep container tightly closed. Throw away any unused medicine after the expiration date. What should I tell my health care provider before I take this medicine? They need to know if you have any of these conditions: kidney disease liver disease porphyria an unusual or allergic reaction to ranitidine, other medicines, foods, dyes, or preservatives or trying to get breast-feeding What should I watch for while using this medicine? Tell your doctor or health career technical education instructor if your condition does not start to get better or gets worse. You may need to take this medicine for several days as prescribed before your symptoms get better. Finish the full course of tablets prescribed, even if you feel better. Do not smoke cigarettes or drink alcohol. These increase irritation in your stomach and can lengthen the time it will take for ulcers to heal. Cigarettes and alcohol can also make acid reflux or heartburn worse. If you get black, tarry stools or vomit up what looks like coffee grounds, call your doctor or health career technical education instructor at once. You may have a bleeding ulcer. You have been given the following additional information: GERD (Adult) Esophageal Spasm Cellulitis Diet, Low Salt (2Gm) Clindamycin Hydrochloride Oral capsule Ranitidine Hydrochloride Oral tablet (Electronically signed by Tobin Potts Dr. 11/07/2016 8:42)
--- NOTE | 2016-11-07 08:43 | ED MED RECONCILIATION SUMMARY ---
Patient: JASON GALLEGOS Medication Reconciliation Report [facility] VisitID: [id number] [place] [address] 46y, F Registration Date/Time: 11/04/2016 Weight: 104.3 kg Height/Length: 64 in. BMI: 39.5 ALLERGIES: Hydrocodone, LIsinopril, NSAIDs The patient's Home Medications are listed below: CONTINUE TAKING THE FOLLOWING MEDICATIONS: AmLODIPine Besylate Oral, daily Atenolol Oral 50 mg, daily Glipizide Oral, daily [place] Oral 450mg day , stopped 3 weeks ago, me her ill Lovastatin Oral, daily MetFORMIN HCl Oral 100mg bid Omeprazole Oral 40 mg, daily Percocet Oral 7.5/325 mg, x 2 tabs tid The source(s) of the original Home Medication information: patient The following Medications were given to the patient in the Emergency Department: GI COCKTAIL WHITE [PO] PO 30 mL, administered: 11/04/2016 3:15:00 PM magnesium oxide PO 400 mg, administered: 11/04/2016 4:51:00 PM The following Medications were prescribed to the patient: Clindamycin 300 mg: take 1 capsule orally every 6 hours for 7 days. No refill. -- Tobin Potts Dr. Zantac 150 mg: take 1 orally every 12 hours. Dispense sixty (60). No refills. Substitution is permissible. -- Tobin Potts Dr.
--- NOTE | 2016-11-07 08:43 | ED MAR SUMMARY ---
..... Medication Administration Record [facility] [address] [place] [address] Patient: JASON GALLEGOS Visit ID: [id number] 46y, F Weight: 104.3 kg Height/Length: 64 in BMI: 39.5 ALLERGIES: Hydrocodone, LIsinopril, NSAIDs Given 15:15 11/04/2016 Ines Potts RGood Medication Administered: GI COCKTAIL WHITE [PO] (SIMETHICONE), Dose: 30 mL PO. Medication Ordered: GI Cocktail WHITE PO 30 mL with Lidocaine Viscous Mouth/Throat 15 mL, Maalox Plus Oral 15 mL (NOW). Given 16:51 11/04/2016 Elizabeth Richter R.N. Medication Administered: magnesium oxide *, Dose: 400 mg * PO. Medication Ordered: - (Magnesium Oxide 400 mg PO x 1 now).
== END 2016-11-04 17:45 | disposition home or self-care (01) ==
LOC: ED SRH 14:18
DX: K21.0 Gastro-esophageal reflux disease with esophagitis (principal); L03.115 Cellulitis of right lower limb; E11.9 Type 2 diabetes mellitus without complications; I10 Essential (primary) hypertension; Z79.84 Long term (current) use of oral hypoglycemic drugs; Z79.899 Other long term (current) drug therapy
CPT/HCPCS: 90100; 90616; 90617; 91320; 92610; 92720; 95059